=== PATIENT | female | born 1955 | race Caucasian/White ===

== ENCOUNTER → 2016-09-17 | Outpatient (REF) | payer BC ==
[~2016-09-17] MED LIST: ACET-654 PO; ACIDTAB16 PO; ALEV220C2 PO; ALPR0.25 PO; BISO10TA PO; CALC500T36 PO; CELE100C PO; CLAR10CA3 PO; CLIN900I5 IV; COLE1TAB PO; DRIS50002 PO; HUMA100I3 SC; HYDR62TA PO; K-TA10TA2 PO; LASI80TA PO; LIDO5OI TOP; MORP1INJ IV; NYST50SS SS; OMEP40CA2 PO; ORPHENADRINE PO; PROT1TAB2 PO; RANI15TA PO; TRAD5TAB PO; ZETI10TA2 PO; ZIAC10TA PO
== END | disposition home or self-care (01) ==
LOC: M LABDRAW1 15:34
PROVIDERS: ATTEND Nurse Practitioner Family
DX: E83.51 Hypocalcemia (principal)

== ENCOUNTER → 2016-12-29 | Outpatient (REF) | payer BC ==
[~2016-12-29] MED LIST changes: +HYDR25TA6 PO; -HYDR62TA PO
[2016-12-29 12:02] LABS: MEAN CORPUSCULAR HEMOGLOBIN 27.8 pg (27.0-33.0); MEAN CORPUSCULAR HGB CONC 32.4 g/dl (32.0-36.5); MEAN CORPUSCULAR VOLUME 85.8 fl (80.0-96.0); RED CELL DISTRIBUTION WIDTH 15.1 % (11.5-14.5); WHITE BLOOD COUNT 7.9 K/mm3 (4.0-10.0)
[2016-12-29 12:51] LABS: ALBUMIN 3.4 GM/DL (3.2-5.2); ALBUMIN/GLOBULIN RATIO 1.06 (1.00-1.93); BILIRUBIN,TOTAL 0.5 MG/DL (0.2-1.0); CREATININE FOR GFR 1.3 MG/DL (0.55-1.02); FREE T4 1.43 NG/DL (0.76-1.46); POTASSIUM SERUM 3.6 MEQ/L (3.5-5.1); TOTAL PROTEIN 6.6 GM/DL (6.4-8.2)
== END ==
LOC: M LABDRAW1 10:22
PROVIDERS: ATTEND Nurse Practitioner Family
DX: E11.9 Type 2 diabetes mellitus without complications (principal); E55.9 Vitamin D deficiency, unspecified; E78.00 Pure hypercholesterolemia, unspecified; E04.9 Nontoxic goiter, unspecified

== ENCOUNTER 2017-04-03 06:34 | Day surgery (SDC) | payer BC ==
[~2017-04-03] VITALS: Ht 165.1 cm; Wt 138.3 kg
[~2017-04-03 06:34] MED LIST changes: -ACET-654 PO; +ACET1TAB17 PO; -ACIDTAB16 PO; +ACIDTAB7 PO; +ALBU17IN INH; +BISO10TA3 PO; +FENO145T PO; +LEVO175T2 PO; -ZETI10TA2 PO; +ZETI10TA30 PO; +ZYRT10TA2 PO
[2017-04-03] MEDS ORDERED: LR 1,000 ML IV SCH (06:45)
[2017-04-03] MEDS ORDERED: METOPROLOL 5 MG/5 ML VIAL As Ordered ONE (07:49)
[2017-04-03] MEDS ORDERED: PROPOFOL 200 MG/20 ML VIAL As Ordered ONE (07:49)
[2017-04-03] MEDS ORDERED: LIDOCAINE 2% INJ 100 MG/5 ML SDV (FOR ANES.) As Ordered ONE (07:49)
--- NOTE | 2017-04-03 07:55 | ROOR ---
Patient Name: Gayla Gregory Procedure Date: 04/03/2017 7:33 AM Date of : 1955 Age: 61 [facility] Gender: Female Note Status: Finalized Procedure: Upper GI endoscopy Indications: Dysphagia Providers: Paolo ALONSO MD Referring MD: [facility] Requesting Provider: Medicines: Monitored Anesthesia Care Complications: No immediate complications. Procedure: Pre-Anesthesia Assessment: - The heart rate, respiratory rate, oxygen saturations, blood pressure, adequacy of pulmonary ventilation, and response to care were monitored throughout the procedure. The Endoscope was introduced through the mouth, and advanced to the second part of duodenum. The upper GI endoscopy was accomplished without difficulty. The patient tolerated the procedure well. Findings: The esophagus was normal. The stomach was normal. The examined duodenum was normal. No endoscopic abnormality was evident in the esophagus to explain the patient's complaint of dysphagia. It was decided, however, to proceed with dilation of the entire esophagus. The scope was withdrawn. Dilation was performed with a Perla dilator with no resistance at 54 Fr. The dilation site was examined and showed no change. The scope was withdrawn. Dilation was performed with a Perla dilator with no resistance at 56 Fr. The dilation site was examined and showed no change. Impression: - Normal esophagus. - Normal stomach. - Normal examined duodenum. - No endoscopic esophageal abnormality to explain patient's dysphagia. Esophagus dilated. Dilated with 54 and 56 Perla dilators. - No specimens collected. Recommendation: - Observe patient's clinical course. - I anticipate no further need for intervention. - Continue present medications. - Return to referring physician as previously scheduled. Paolo Alonso MD Paolo ALONSO MD 04/03/2017 7:54:47 AM This report has been signed electronically. Number of Addenda: 0 Note Initiated On: 04/03/2017 7:33 AM Estimated Blood Loss: Estimated blood loss: none.
[2017-04-03 08:45] VITALS: BP 125/82
== END 2017-04-03 08:45 | disposition home or self-care (01) ==
LOC: M SDC 06:34 → EDSTATUS 07:30 → M SDC 08:45
PROVIDERS: ATTEND Internal Medicine Gastroenterology
DX: R13.10 Dysphagia, unspecified (principal); I49.9 Cardiac arrhythmia, unspecified; I10 Essential (primary) hypertension; E78.00 Pure hypercholesterolemia, unspecified; R60.0 Localized edema; E11.9 Type 2 diabetes mellitus without complications; E04.1 Nontoxic single thyroid nodule; K57.32 Diverticulitis of large intestine without perforation or abscess without bleeding; K76.0 Fatty (change of) liver, not elsewhere classified; K21.9 Gastro-esophageal reflux disease without esophagitis; K58.9 Irritable bowel syndrome, unspecified; R06.02 Shortness of breath; M12.9 Arthropathy, unspecified; M54.2 Cervicalgia; M79.7 Fibromyalgia; R29.898 Other symptoms and signs involving the musculoskeletal system; R51 Headache; J45.909 Unspecified asthma, uncomplicated; N28.9 Disorder of kidney and ureter, unspecified; Z88.1 Allergy status to other antibiotic agents; Z91.09 Other allergy status, other than to drugs and biological substances; Z91.040 Latex allergy status; Z79.899 Other long term (current) drug therapy; Z90.710 Acquired absence of both cervix and uterus

== ENCOUNTER → 2017-04-15 | Outpatient (REF) | payer BC ==
[2017-04-15 14:59] LABS: FREE T4 1.4 NG/DL (0.76-1.46)
== END ==
LOC: M LABDRAW1 11:50
PROVIDERS: ATTEND Registered Nurse
DX: E89.0 Postprocedural hypothyroidism (principal)

== ENCOUNTER → 2017-04-15 | Outpatient (REF) | payer BC ==
[2017-04-15 14:32] LABS: MEAN CORPUSCULAR HEMOGLOBIN 28.2 pg (27.0-33.0); MEAN CORPUSCULAR HGB CONC 32.8 g/dl (32.0-36.5); MEAN CORPUSCULAR VOLUME 86.1 fl (80.0-96.0); RED CELL DISTRIBUTION WIDTH 14.4 % (11.5-14.5); WHITE BLOOD COUNT 6.9 K/mm3 (4.0-10.0)
[2017-04-15 15:01] LABS: ALBUMIN 3.5 GM/DL (3.2-5.2); ALBUMIN/GLOBULIN RATIO 1.06 (1.00-1.93); BILIRUBIN,TOTAL 0.5 MG/DL (0.2-1.0); CALCIUM LEVEL 8.7 MG/DL (8.8-10.2); CREATININE FOR GFR 1.22 MG/DL (0.55-1.02); FREE T4 1.44 NG/DL (0.76-1.46); GLOMERULAR FILTRATION RATE 47.4 (>45); POTASSIUM SERUM 4.2 MEQ/L (3.5-5.1); TOTAL PROTEIN 6.8 GM/DL (6.4-8.2)
== END ==
LOC: M LABDRAW1 11:50
PROVIDERS: ATTEND Internal Medicine Cardiovascular Disease
DX: E11.9 Type 2 diabetes mellitus without complications (principal); I10 Essential (primary) hypertension; E78.00 Pure hypercholesterolemia, unspecified; E03.9 Hypothyroidism, unspecified

== ENCOUNTER → 2017-09-29 | Outpatient (REF) | payer BC ==
[2017-09-29 11:46] LABS: HEMATOCRIT 45.9 % (36.0-47.0); HEMOGLOBIN 14.4 g/dl (12.0-16.0); MEAN CORPUSCULAR HEMOGLOBIN 26.7 pg (27.0-33.0); MEAN CORPUSCULAR HGB CONC 31.4 g/dl (32.0-36.5); MEAN CORPUSCULAR VOLUME 85.2 fl (80.0-96.0); PLATELET COUNT, AUTOMATED 173 10^3/uL (150-450); RED BLOOD COUNT 5.39 10^6/uL (4.00-5.40); WHITE BLOOD COUNT 6.8 10^3/uL (4.0-10.0)
[2017-09-29 12:01] LABS: ESTIMATED AVERAGE GLUCOSE 131 MG/DL (60-110); HEMOGLOBIN A1c 6.2 %
[2017-09-29 12:20] LABS: ALBUMIN 3.6 GM/DL (3.2-5.2); ALBUMIN/GLOBULIN RATIO 1.16 (1.00-1.93); ALKALINE PHOSPHATASE 45 U/L (45-117); ALT/SGPT 27 U/L (12-78); ANION GAP 7 MEQ/L (8-16); AST/SGOT 23 U/L (7-37); BILIRUBIN,TOTAL 0.6 MG/DL (0.2-1.0); BLOOD UREA NITROGEN 18 MG/DL (7-18); CALCIUM LEVEL 8.8 MG/DL (8.8-10.2); CARBON DIOXIDE LEVEL 30 MEQ/L (21-32); CHLORIDE LEVEL 108 MEQ/L (98-107); CHOLESTEROL LEVEL 144 MG/DL (<200); CPK CREATINE PHOSPHOKINASE 108 U/L (26-192); CREATININE FOR GFR 1.02 MG/DL (0.55-1.30); FREE T4 1.79 NG/DL (0.76-1.46); GLOMERULAR FILTRATION RATE 58.1 (>45); GLUCOSE, FASTING 91 MG/DL (70-100); HDL CHOLESTEROL 50 MG/DL (>40); NON-HDL-C 94 MG/DL; POTASSIUM SERUM 4.2 MEQ/L (3.5-5.1); SODIUM LEVEL 145 MEQ/L (136-145); TOTAL PROTEIN 6.7 GM/DL (6.4-8.2); TRIGLYCERIDES LEVEL 95 MG/DL (<150)
== END ==
LOC: M LABDRAW1 10:29
DX: E78.5 Hyperlipidemia, unspecified (principal); I10 Essential (primary) hypertension; E11.9 Type 2 diabetes mellitus without complications; E03.9 Hypothyroidism, unspecified
CPT/HCPCS: 82550

== ENCOUNTER 2018-01-16 13:03 | Emergency (ER) | payer BC ==
[2018-01-16 15:01] LABS: BASO % 0.3 % (0.0-1.0); EOS # 0.1 10^3/uL (0.0-0.50); EOS % 0.8 % (0.0-3.0); HEMATOCRIT 46.9 % (36.0-47.0); IMMATURE GRANULOCYTE % 0.3 % (0-3.0); LYMPH # 2.1 10^3/uL (1.5-4.5); LYMPH % 23.6 % (24.0-44.0); MEAN CORPUSCULAR HEMOGLOBIN 26.7 pg (27.0-33.0); MEAN CORPUSCULAR VOLUME 83.6 fl (80.0-96.0); MONO # 0.8 10^3/uL (0.0-0.8); MONO % 9.4 % (0.0-5.0); NEUTROPHILS # 5.8 10^3/uL (1.8-7.7); NEUTROPHILS % 65.6 % (36.0-66.0); PLATELET COUNT, AUTOMATED 148 10^3/uL (150-450); RED BLOOD COUNT 5.61 10^6/uL (4.00-5.40); RED CELL DISTRIBUTION WIDTH 15.5 % (11.5-14.5); WHITE BLOOD COUNT 8.8 10^3/uL (4.0-10.0)
[2018-01-16] MEDS: NS 1,000 ML IV (15:14)
[2018-01-16] MEDS: MORPHINE 4 MG/ML 1ML VIAL/SYRINGE (J2270) IV (15:15)
[2018-01-16] MEDS: ONDANSETRON 4MG/2ML VIAL (J2405) IV (15:16)
[2018-01-16 15:28] LABS: ANION GAP 4 MEQ/L (8-16); BLOOD UREA NITROGEN 12 MG/DL (7-18); CARBON DIOXIDE LEVEL 32 MEQ/L (21-32); CHLORIDE LEVEL 101 MEQ/L (98-107); CREATININE FOR GFR 0.97 MG/DL (0.55-1.30); GLOMERULAR FILTRATION RATE > 60.0 (>45); GLUCOSE, FASTING 114 MG/DL (70-100); POTASSIUM SERUM 3.9 MEQ/L (3.5-5.1); SODIUM LEVEL 137 MEQ/L (136-145)
== END 2018-01-16 16:53 | disposition home or self-care (01) ==
LOC: M ED 13:03
DX: R20.2 Paresthesia of skin (principal); M54.6 Pain in thoracic spine; M79.641 Pain in right hand; M79.642 Pain in left hand; I10 Essential (primary) hypertension; R11.2 Nausea with vomiting, unspecified; E86.0 Dehydration; L03.115 Cellulitis of right lower limb; Z20.9 Contact with and (suspected) exposure to unspecified communicable disease; R51 Headache; M54.9 Dorsalgia, unspecified; J45.909 Unspecified asthma, uncomplicated; E11.9 Type 2 diabetes mellitus without complications; E78.5 Hyperlipidemia, unspecified; K21.9 Gastro-esophageal reflux disease without esophagitis; K58.9 Irritable bowel syndrome, unspecified; K76.0 Fatty (change of) liver, not elsewhere classified; M50.93 Cervical disc disorder, unspecified, cervicothoracic region; Z79.899 Other long term (current) drug therapy; Z88.0 Allergy status to penicillin; Z91.040 Latex allergy status
CPT/HCPCS: J2270

== ENCOUNTER → 2018-02-06 | Outpatient (CLI) | payer BC ==
[2018-02-06 17:20] LABS: HEMATOCRIT 46.4 % (36.0-47.0); HEMOGLOBIN 14.5 g/dl (12.0-15.5); MEAN CORPUSCULAR HEMOGLOBIN 26.9 pg (27.0-33.0); MEAN CORPUSCULAR HGB CONC 31.3 g/dl (32.0-36.5); MEAN CORPUSCULAR VOLUME 86.1 fl (80.0-96.0); PLATELET COUNT, AUTOMATED 207 10^3/uL (150-450); RED BLOOD COUNT 5.39 10^6/uL (4.00-5.40); RED CELL DISTRIBUTION WIDTH 15.9 % (11.5-14.5); WHITE BLOOD COUNT 7.7 10^3/uL (4.0-10.0)
[2018-02-06 17:26] LABS: ESTIMATED AVERAGE GLUCOSE 131 MG/DL (60-110); HEMOGLOBIN A1c 6.2 %
[2018-02-06 17:34] LABS: ALBUMIN 3.7 GM/DL (3.2-5.2); ALBUMIN/GLOBULIN RATIO 1.09 (1.00-1.93); ALKALINE PHOSPHATASE 53 U/L (45-117); ALT/SGPT 25 U/L (12-78); ANION GAP 6 MEQ/L (8-16); AST/SGOT 16 U/L (7-37); BILIRUBIN,TOTAL 0.6 MG/DL (0.2-1.0); BLOOD UREA NITROGEN 18 MG/DL (7-18); CALCIUM LEVEL 8.7 MG/DL (8.8-10.2); CARBON DIOXIDE LEVEL 32 MEQ/L (21-32); CHLORIDE LEVEL 107 MEQ/L (98-107); CHOLESTEROL LEVEL 169 MG/DL (<200); CHOLESTEROL RISK RATIO 3.188 (<5); CPK CREATINE PHOSPHOKINASE 76 U/L (26-192); CREATININE FOR GFR 1.15 MG/DL (0.55-1.30); GLOMERULAR FILTRATION RATE 50.6 (>45); GLUCOSE, FASTING 98 MG/DL (70-100); HDL CHOLESTEROL 53 MG/DL (>40); LDL CHOLESTEROL 95.4 MG/DL (<100); NON-HDL-C 116 MG/DL; POTASSIUM SERUM 4.7 MEQ/L (3.5-5.1); SODIUM LEVEL 145 MEQ/L (136-145); TOTAL PROTEIN 7.1 GM/DL (6.4-8.2); TRIGLYCERIDES LEVEL 103 MG/DL (<150)
[2018-02-06 18:13] LABS: MALB URINE SIEMENS 9.7 MG/L; MAU/CREAT RATIO 6.9 MCG/MG (0.0-30.0)
== END ==
LOC: M WUC 11:57
DX: I10 Essential (primary) hypertension (principal); E78.5 Hyperlipidemia, unspecified; E11.9 Type 2 diabetes mellitus without complications; E03.9 Hypothyroidism, unspecified

== ENCOUNTER → 2018-05-13 | Outpatient (REF) | payer BC ==
[2018-05-13 13:12] LABS: HEMATOCRIT 46.2 % (36.0-47.0); HEMOGLOBIN 14.4 g/dl (12.0-15.5); MEAN CORPUSCULAR HEMOGLOBIN 26.9 pg (27.0-33.0); MEAN CORPUSCULAR HGB CONC 31.2 g/dl (32.0-36.5); MEAN CORPUSCULAR VOLUME 86.4 fl (80.0-96.0); PLATELET COUNT, AUTOMATED 195 10^3/uL (150-450); RED BLOOD COUNT 5.35 10^6/uL (4.00-5.40); RED CELL DISTRIBUTION WIDTH 15.1 % (11.5-14.5); WHITE BLOOD COUNT 7.9 10^3/uL (4.0-10.0)
[2018-05-13 14:06] LABS: ESTIMATED AVERAGE GLUCOSE 128 MG/DL (60-110); HEMOGLOBIN A1c 6.1 %
[2018-05-13 14:15] LABS: ALBUMIN 3.1 GM/DL (3.2-5.2); ALBUMIN/GLOBULIN RATIO 0.84 (1.00-1.93); ALKALINE PHOSPHATASE 52 U/L (45-117); ALT/SGPT 25 U/L (12-78); ANION GAP 8 MEQ/L (8-16); AST/SGOT 23 U/L (7-37); BILIRUBIN,TOTAL 0.5 MG/DL (0.2-1.0); BLOOD UREA NITROGEN 14 MG/DL (7-18); CALCIUM LEVEL 8.2 MG/DL (8.8-10.2); CARBON DIOXIDE LEVEL 30 MEQ/L (21-32); CHLORIDE LEVEL 107 MEQ/L (98-107); CHOLESTEROL LEVEL 149 MG/DL (<200); CHOLESTEROL RISK RATIO 3.239 (<5); CPK CREATINE PHOSPHOKINASE 84 U/L (26-192); CREATININE FOR GFR 1.07 MG/DL (0.55-1.30); FREE T4 1.55 NG/DL (0.76-1.46); GLUCOSE, FASTING 94 MG/DL (70-100); HDL CHOLESTEROL 46 MG/DL (>40); LDL CHOLESTEROL 83 MG/DL (<100); NON-HDL-C 103 MG/DL; POTASSIUM SERUM 4.5 MEQ/L (3.5-5.1); SODIUM LEVEL 145 MEQ/L (136-145); THYROID STIMULATING HORMONE 0.317 uIU/ML (0.358-3.740); TOTAL 25(OH) VITAMIN D 16.6 NG/ML (30.0-100.0); TOTAL PROTEIN 6.8 GM/DL (6.4-8.2); TRIGLYCERIDES LEVEL 98 MG/DL (<150)
[2018-05-13 14:26] LABS: MALB URINE SIEMENS 26.5 MG/L
== END ==
LOC: M LABDRAW1 12:10
DX: E78.5 Hyperlipidemia, unspecified (principal); I10 Essential (primary) hypertension; E55.9 Vitamin D deficiency, unspecified
CPT/HCPCS: 82550

== ENCOUNTER 2018-06-25 11:48 | Day surgery (SDC) | payer BC ==
[2018-06-25] MEDS: NS 1,000 ML IV (12:29)
[2018-06-25] MEDS ORDERED: PROPOFOL 200 MG/20 ML VIAL As Ordered ×2 (13:01→13:54)
[2018-06-25] MEDS ORDERED: LIDOCAINE 2% INJ 100 MG/5 ML SDV (FOR ANES.) As Ordered (13:01)
== END 2018-06-25 14:25 | disposition home or self-care (01) ==
LOC: M OPP 11:48
DX: R13.12 Dysphagia, oropharyngeal phase (principal); R12 Heartburn; I10 Essential (primary) hypertension; E78.5 Hyperlipidemia, unspecified; E11.9 Type 2 diabetes mellitus without complications; E03.9 Hypothyroidism, unspecified; G47.00 Insomnia, unspecified; Z79.899 Other long term (current) drug therapy
CPT/HCPCS: 43245

== ENCOUNTER → 2019-05-23 | Outpatient (CLI) | payer MEDICARE ==
[~2019-05-23] MED LIST changes: -ACET1TAB17 PO; +ACET1TAB55 PO; -BISO10TA PO; +BISO10TA13 PO; -BISO10TA3 PO; +BISO10TA4 PO; -CALC500T36 PO; +CALC500T61 PO; -CLIN900I5 IV; +CLIN900I7 IV; -DRIS50002 PO; +DRIS50003 PO; -FENO145T PO; +FENO145T13 PO; +FURO40TA2 PO; +GABA-843 PO; +GLIM1TAB PO; -LASI80TA PO; +LASI80TA3 PO; +LEVOTAB10 PO; -LIDO5OI TOP; +LIDO5OIN TOP; +ORPH100T2 PO; +ROBA500T PO; +ZETI10TA16 PO; -ZETI10TA30 PO; +ZOFR4TAB14 PO; +ZYRT10CA5 PO; -ZYRT10TA2 PO
--- NOTE | 2019-05-24 07:40 | ECHO ---
DATE OF PROCEDURE: 05/23/2019 REFERRING PHYSICIAN: Dr. Maldonado INDICATION: Dyspnea HEIGHT: 167 cm. WEIGHT: 168 kg. DIMENSIONS: IVS: 1.0 LV: 5.5 LVPW: 1.2 LA: 4.8 Aorta: 2.7 Left atrial volume index: 17 Mitral E wave velocity: 114 A wave: 70 FINDINGS: The study is of rather poor technical quality corresponding to patient's body habitus. Left ventricle is of normal size and probably normal systolic function. I do not appreciate any segmental wall motion abnormalities based on somewhat limited views. Right ventricle was poorly seen, but does not appear grossly enlarged. Left atrium is moderately enlarged. Right atrium was poorly visualized. Aortic and mitral valve appear grossly normal. Tricuspid valve also appears normal based on very limited view. Pulmonic valve was not visualized. Pericardial fat pad, but no effusion is noted. Inferior vena cava was not seen. Aortic root is normal. Aortic arch and abdominal aorta were not seen. Doppler interrogation reveals no significant aortic valvular disease. There is trace mitral insufficiency and trace tricuspid insufficiency. Unfortunately, quality of TR jet was not sufficient to adequately estimate pulmonary artery pressure. Mitral inflow pattern reveals normal pattern. Tissue Doppler imaging of mitral annulus was not performed. Consequently, I cannot reliably estimate diastolic function. CONCLUSIONS: 1. Study is of markedly limited technical quality. 2. Normal LV size with probably normal systolic function. Unable to estimate diastolic function. 3. No significant aortic, mitral and tricuspid valvular disease. 4. Unable to estimate central venous pressure and pulmonary artery pressure. COMMENT: Subacute bacterial endocarditis (SBE) prophylaxis is not recommended.
== END ==
LOC: M CARPUL 07:48
PROVIDERS: ATTEND Internal Medicine Pulmonary Disease
DX: R06.00 Dyspnea, unspecified (principal)

== ENCOUNTER → 2019-07-07 | Outpatient (CLI) | payer MEDICARE ==
[~2019-07-07] MED LIST changes: -GLIM1TAB PO; +GLIM1TAB2 PO; -OMEP40CA2 PO; +OMEP40CA97 PO
--- NOTE | 2019-07-12 19:22 | SLEEPCENT ---
DATE OF PROCEDURE: 07/07/2019 REFERRING PROVIDER: FRANCIS Felix INTERPRETATION Nocturnal polysomnography was performed for evaluation of sleep apnea syndrome symptoms consisting of excessive daytime sleepiness, insomnia, snoring, gasping respirations, morning headaches, and nonrestorative sleep. It should be noted that the patient slept in a hospital bed with the head of bed elevated to 45 degrees. She has slept in a recliner since her hospital discharge in February of 2009. There was a total of 7 hours and 29 minutes of data reviewed with 366 minutes of sleep identified. Sleep latency was 16.5 minutes. REM latency was 93.5 minutes. No slow-wave sleep was identified. Sleep latency was 83.2%. EKG showed normal sinus rhythm with an average heart rate of 60 beats per minute. Speeding and slowing was noted surrounding some respiratory events. No epileptiform discharge observed. There were 219 respiratory events identified of 10 seconds in duration or longer for an apnea-hypopnea index (AHI) of 35.7. The events were predominantly obstructive apnea/hypopneas. Respiratory event related arousal (RERA) index was 0.3 giving an respiratory disturbance index (RDI) of 46.2. Mean oxygen saturation for the study was 89% with a minimum recorded value of 63%. Arousal index was 6.6 with a majority of arousals breathing related. Periodic limb movement index was 9.7. She spent a vast majority of the study with saturations 89% or higher. IMPRESSION: 1. Obstructive sleep apnea, severe. 2. Periodic limb movements, mild. RECOMMENDATIONS Recommend the patient return to the sleep disorder center for the determination of pressure therapy. Pending that intervention, alcohol and sedative usage should be avoided and care should be taken when operating motor vehicles.
== END ==
LOC: M SLEEP 19:42
PROVIDERS: ATTEND Internal Medicine Pulmonary Disease
DX: G47.33 Obstructive sleep apnea (adult) (pediatric) (principal); G47.61 Periodic limb movement disorder

== ENCOUNTER → 2019-09-08 | Outpatient (CLI) | payer MEDICARE, BC ==
[~2019-09-08] MED LIST changes: -FENO145T13 PO; +FENO145T7 PO; -GLIM1TAB2 PO; +GLIM1TAB4 PO
== END ==
LOC: M SLEEP 19:12
PROVIDERS: ATTEND Internal Medicine Pulmonary Disease
DX: G47.33 Obstructive sleep apnea (adult) (pediatric) (principal)

== ENCOUNTER → 2019-09-09 | Outpatient (CLI) | payer MEDICARE ==
--- NOTE | 2019-09-23 01:55 | ECWPNPC ---
PATIENT NAME: TRACY EARL : 1955 GENDER: FEMALE VISIT DATE: 09/09/2019 DISCHARGE DATE: 09/09/19 1510 VISIT LOCKED DATE TIME: PHYSICIAN: YANI MARTINEZ MD RESOURCE: YANI MARTINEZ MD REASON FOR APPOINTMENT 1. BACK PAIN HISTORY OF PRESENT ILLNESS PAIN SCREENING: PATIENT HAS A COMPLAINT OF ACUTE OR CHRONIC PAIN :YES 64 YEAR OLD FEMALE PATIENT WITH A HISTORY OF CHRONIC LOW BACK AND BILATERAL KNEE PAIN. THE PATIENT DESCRIBES HER PAIN BURNING, STABBING, AND SHOOTING WITH A PAIN SCORE OF 8-9/10 DEPENDING ON PHYSICAL ACTIVITY. THE PATIENT SAYS SHE HAS BEEN SUFFERING FROM HER PAIN FOR MANY YEARS. THE PATIENT SAYS HER KNEE PAIN IS WORSE ON THE LEFT SIDE AND DESCRIBES IT A BURNING SENSATION FROM HER KNEE DOWN TO HER ANKLE. THE PATIENT SAYS SHE IS USING A WHEELCHAIR DUE TO HER PAIN. THE PATIENT SAYS HER PAIN IS AFFECTING HER ABILITY TO PERFORM HER DAILY ACTIVITIES SUCH MOVING AROUND, CLEANING HER HOUSE, AND GROCERY SHOPPING. PATIENT DENIES UNEXPLAINABLE WEIGHT LOSS, FEVER, CHILLS, NEW CHANGES ON HER URINARY OR BOWEL CONTROL. FALL RISK SCREENING: SCREENING :NO FALLS REPORTED IN THE LAST YEAR CURRENT MEDICATIONS TAKING OMEPRAZOLE 40 MG CAPSULE DELAYED RELEASE 1 CAPSULE ORALLY BID TAKING POTASSIUM CHLORIDE TABLET BID 10 MEQ TAKING FUROSEMIDE 80 MG TABLET 1 TABLET ORALLY ONCE A DAY NEEDED TAKING VITAMIN D 70282 UNIT CAPSULE 1 CAPSULE ORALLY TAKING BISOPROLOL-HYDROCHLOROTHIAZIDE 10-6.25 MG TABLET 1 TABLET ORALLY ONCE A DAY TAKING TRADJENTA 5 MG TABLET 1 TABLET ORALLY ONCE A DAY TAKING FENOFIBRATE 145 MG TABLET 1 TABLET ORALLY ONCE A DAY TAKING EZETIMIBE 10 MG TABLET 1 TABLET ORALLY ONCE A DAY TAKING SYNTHROID 175 MCG TABLET 1 TABLET ON AN EMPTY STOMACH IN THE MORNING ORALLY ONCE A DAY TAKING GLIMEPIRIDE 1 MG TABLET 1 TABLET WITH BREAKFAST OR THE FIRST MAIN MEAL OF THE DAY ORALLY ONCE A DAY TAKING GABAPENTIN 300 MG CAPSULE 1 CAPSULE ORALLY 900 MG TID, NOTES: 900 MG TID TAKING LEVOCETIRIZINE DIHYDROCHLORIDE 5 MG TABLET 1 TABLET IN THE EVENING ORALLY ONCE A DAY TAKING CELEBREX 100 MG CAPSULE 1 CAPSULE WITH FOOD ORALLY BID TAKING VITAMIN B12 1000 MCG TABLET EXTENDED RELEASE 1 TABLET ORALLY ONCE A DAY TAKING LORATADINE 10 MG TABLET 1 TABLET ORALLY ONCE A DAY TAKING FAMOTIDINE 20 MG TABLET 1 CAP ORALLY BID NOT-TAKING CLARITIN-D 24 HOUR 10-240 MG TABLET EXTENDED RELEASE 24 HOUR 1 TABLET NEEDED ORALLY ONCE A DAY NOT-TAKING ZETIA 10 MG TABLET 1 TABLET ORALLY ONCE A DAY NOT-TAKING ORPHENADRINE CITRATE 100 MG TABLET 1 TABLET AT BEDTIME ORALLY ONCE A DAY NOT-TAKING ZANTAC 150 MAXIMUM STRENGTH 150 MG TABLET 1 TABLET AT BEDTIME ORALLY ONCE A DAY NOT-TAKING AMOXICILLIN 500 MG TABLET 1 TABLET ORALLY EVERY 12 HRS NOT-TAKING MEDROL 4 MG TABLET THERAPY PACK DIRECTED ORALLY DAILY NOT-TAKING COLESTIPOL HCL 1 GM TABLET 2 TABLETS ORALLY ONCE A DAY NOT-TAKING FUROSEMIDE 1 TAB ORAL NOT-TAKING LISINOPRIL 10 MG TABLET 1 TABLET ORALLY ONCE A DAY NOT-TAKING CALCIUM 150 MG TABLET ORALLY NOT-TAKING ACETAMINOPHEN 500 MG CAPSULE ORALLY PAST MEDICAL HISTORY HYPERTENSION DIABETES HIGH CHOLESTEROL ARTHRITIS ALLERGIES AUGMENTIN: STOMACH CRAMPS - SIDE EFFECTS VICODIN: URNING SENSATION ACROSS CHEST - SIDE EFFECTS LATEX GLOVES: LIPS TURNED BLUE AT DENTIST APPT - SIDE EFFECTS STEROIDS- PT UNAWARE WHICH STEROID: FACIAL REDNESS AND STATES SHE GIT REALLY HOT - SIDE EFFECTS SURGICAL HISTORY NECK SURGERY- "SCRAPED DISCS" 05/29/12 BILATERAL BREAST REDUCTION 05/03/2008 HYSTERECTOMY 10/30/2007 PINICULECTOMY 08/11/2007 REMOVAL OF NAVEL 01/2008 REMOVAL OF FATTY TUMOR FRO LEFT HIP 05/2005 GALL BLADDER REMOVAL 08/2005 OVARY REMOVAL 03/2000 THROGLYOSCYAL CYST REMOVAL 1960 TONSILLECTOMY 1957 BILATERAL CATARACT REMOVAL WITH LENS IMPLANT 12/2014 THYROIDECTOMY 01/2017 FAMILY HISTORY FATHER: 82 YRS MOTHER: 81 YRS SIBLINGS: 42 YRS, DIAGNOSED WITH DIABETES 2DAUGHTER(S) - HEALTHY. FATHER-ALSMOTHER- ARTERIAL SCLEROSISSIBLING/ALIVE- DIABETES, COPD SIBLING/ALIVE- DIABETES/ BACK ISSUES1 DAUGHTER HAS PARACARDITIS. SOCIAL HISTORY GENERAL: TOBACCO USE ARE YOU A:NONSMOKER HIV / HEP-C SCREENING HIV TEST OFFERED TO PATIENT:YES DATE OFFERED:12/13/2016 TEST ACCEPTED:NO HEP-C TEST OFFERED TO PATIENT:NO REASON:PATIENT DECLINED OTHERS AT HOME: SPOUSE. HOUSING: OWNS MOBILE HOME. EDUCATION LEVEL OF EDUCATION:HIGH SCHOOL BOCES- OFFICE MANAGEMENT DIET: REGULAR. LANGUAGE LANGUAGES SPOKEN:AMHARIC DOMESTIC VIOLENCE STATUS: NEW PATIENT PAIN DIARY PATIENT DESCRIBES PAIN :BURNING, STABBING, SHOOTING FROM 0-10, WHAT LEVEL IS YOUR PAIN TODAY?8 PRECIPITATING FACTORS SITTING FOR TOO LONG, STANDING ALLEVIATING FACTORS SITTING IN RECLINER, IMPACT ON FUNCTION NOT ABLE TO DO THE THINGS SHE WOULD LIKE TO DO DAILY HAVE YOU BEEN SICK IN THE LAST WEEK (COLD, COUGH, FEVER, FLU, ETC)NO DO YOU TAKE ANY BLOOD THINNERS?NO DO YOU HAVE ANY RASHES OR OPEN SORES?NO ANY CHANGE IN BOWEL OR BLADDER CONTROL?NO ARE YOU ALLERGIC TO SHELLFISH OR IV DYE?NO ARE YOU DIABETIC?YES DO YOU HAVE A PACEMAKER OR DEFIBRILLATOR?NO HAVE YOU FALLEN IN THE LAST 6 MONTHS?NO DO YOU USE ANY TYPE OF TOBACCO (SMOKE, SMOKELESS, CHEW, ETC.)NO ARE YOU ABUSED, NEGLECTED, OR IN AN UNSAFE ENVIRONMENT?NO DO YOU HAVE THOUGHTS OF HURTING YOURSELF OR SOMEONE ELSE?NO INTENSITY SCALE REVIEWEDNUMBER RECREATIONAL DRUG USE DRUG USE?NO PATIENT DENIES ABUSE OR MISSUSED OF ANY MEDICATION DENIES PATIENT DENIES USE OF ANY ILLEGAL SUBSTANCE INCLUDING MARIJUANA OR COCAINE DENIES EXERCISE: NO REGULAR EXERCISE- DUE TO PAIN. LEARNING BARRIERS / SPECIAL NEEDS BARRIERS TO LEARNING?NO HEARING IMPAIRED?NO VISION IMPAIRED?YES :CORRECTIVE LENSES COGNITIVELY IMPAIRED?NO READINESS TO LEARN?YES LEARNING PREFERENCES?NO LEARNING CAPABILITIES PRESENT?YES EMOTIONAL BARRIERS?NO SPECIAL DEVICES?NO BUTTON SPINDLER NEEDED?NO PAIN CLINIC PFS, CLERGY, PUBLIC HEALTH REFERRALS PFS REFERRAL NEEDED?NO CLERGY REFERRAL NEEDED?NO PUBLIC HEALTH REFERRAL NEEDED?NO WAS THE PROVIDER NOTIFIED OF ANY PERTINENT INFO?YES HAS THE PATIENT BEEN EDUCATED REGARDING HIS/HER PLAN OF CARE?YES HAS THE PATIENT BEEN EDUCATED REGARDING PAIN, THE RISK FOR PAIN, THE IMPORTANCE OF EFFECTIVE PAIN MANAGEMENT, AND THE PAIN ASSESSMENT PROCESS?YES LATEX QUESTIONNAIRE LATEX ALLERGY : HAVE YOU EVER DEVELOPED ANY TYPE OF REACTION AFTER HANDLING LATEX PRODUCTS SUCH RUBBER GLOVES, CONDOMS, DIAPHRAGMS, BALLOONS, SOCKS, OR UNDERWEAR?YES - PLEASE INDICATE :RUBBER GLOVES LATEX ALLERGY : HAVE YOU EVER DEVELOPED ANY TYPE OF REACTION DURING OR AFTER DENTAL APPOINTMENT, VAGINAL/RECTAL EXAMINATION, SURGICAL PROCEDURE, OR ANY OTHER EXPOSURE?YES - PLEASE INDICATE :DENTAL PROCEDURE LATEX RISK : HAVE YOU EVER HAD ANY DIFFICULTY BREATHING OR HIVES AFTER EATING OR HANDLING ANY FRUITS, OR VEGETABLES; SUCH KIWI, BANANAS, STONE FRUITS, OR CHESTNUTSNO LATEX RISK : DO YOU HAVE A PREVIOUS PERSONAL HISTORY OF MORE THAN NINE SURGERIES, SPINA BIFIDA, OR REPEATED CATHERIZATIONS? YES - PLEASE INDICATE : > 9 SURGERIES LATEX RISK : ARE YOU FREQUENTLY EXPOSED TO LATEX PRODUCTS IN YOUR OCCUPATION?NO DATE ASKED : 09/09/2019 CAFFEINE CAFFEINE USE?NO ADVANCE DIRECTIVE ADVANCE DIRECTIVE DISCUSSED WITH PATIENT:NO PATIENT STATES SHE DOES NOT HAVE ANY ADVANCED DIRECTIVES AT THIS TIME. PAPERWORK FOR HCP PROVEDED TO PT DECLINES ASSISTANCE COMPLETING PAPERWORK. 09/09/2019 1207 NLJ YARSANI YARSANI NO RESTORATIONISM BELIEFS THAT WOULD IMPACT HEALTH CARE. MARITAL STATUS: . ALCOHOL SCREENING DID YOU HAVE A DRINK CONTAINING ALCOHOL IN THE PAST YEAR?NO POINTS0 INTERPRETATIONNEGATIVE OCCUPATION: UNEMPLOYED. REVIEWED WITH PATIENT 09/09/2019 1207 NLJ. HOSPITALIZATION/MAJOR DIAGNOSTIC PROCEDURE SURGERIES COUGH 02/2019 HAD THROAT PROBLEMS, CLOSURE 12/2015 REVIEW OF SYSTEMS REVIEWED BY: PROVIDER: YANI MARTINEZ MD . CONSTITUTIONAL: ANY CHANGE IN YOUR MEDICAL CONDITION? NO . CHILLS NO . FEVER NO . INFECTION: DO YOU HAVE NEW INFECTIONS? NO . DO YOU HAVE HISTORY OF MRSA? NO . MUSCULOSKELETAL: ANY NEW PATTERNS OF PAIN OR NUMBNESS? NO . SYTEMIC LUPUS NO . GASTROENTEROLOGY: ANY NEW CHANGE IN BOWEL CONTROL? NO . BARRETTS ESOPHAGUS NO . CIRRHOSIS NO . HEPATITIS NO . LIVER FAILURE NO . ACID REFLUX YES . UNEXPLAINED WEIGHT LOSS NO . GENITOURINARY: ANY NEW CHANGE IN BLADDER CONTROL? NO . IS THERE A CHANCE YOU COULD BE ? NO . HEMATOLOGY/LYMPH: DO YOU TAKE ANY BLOOD THINNERS? (FOR EXAMPLE- COUMADIN, PLAVIX, AGGRENOX, PLATEL, PRADAXA, OR XARELTO) NO . WHEN WAS YOUR LAST DOSE? DATE: TIME: . LOW PLATELET COUNT NO . SICKLE CELL DISEASE NO . VON WILLIEBRANDS NO . FACTOR V LEIDEN NO . THALLASEMIA NO . ANEMIA NO . EASY BRUISING NO . NEUROLOGY: HAVE YOU FALLEN IN THE PAST 12 MONTHS? NO . ANY NEW EXTREMITY NUMBNESS OR WEAKNESS? NO . HEAD INJURY NO . DEMENTIA NO . CEREBRAL PALSY NO . MULTIPLE SCLEROSIS NO . DIZZINESS NO . HEADACHE NO . STROKES NO . VERTIGO NO . CARDIOLOGY: DO YOU HAVE A PACEMAKER OR DEFIBRILLATOR? NO . ANGINA NO . HEART ATTACK NO . HEART SURGERY NO . CONGESTIVE HEART FAILURE/FLUID OVERLOAD NO . CHEST PAIN NO . HIGH BLOOD PRESSURE ON MEDICATION(S) . IRREGULAR HEART BEAT NO . RESPIRATORY: HAVE YOU BEEN SICK IN THE PAST WEEK? NO . FEVER NO . FLU LIKE SYMPTOMS? NO . CPAP NO . BYPAP NO . ASTHMA NO . EMPHYSEMA NO . CHRONIC LUNG DISEASES NO . SHORTNESS OF BREATH ON EXERTION YES . COUGH NO . SNORING NO . INTEGUMENTARY: DO YOU HAVE ANY RASHES OR OPEN SORES? NO . ALLERGIC/IMMUNO: ARE YOU ALLERGIC TO IV DYE? NO . ANY NEW ALLERGIES? NO . PSYCHIATRIC: DO YOU HAVE THOUGHTS OF HURTING YOURSELF OR SOMEONE ELSE? NO . ARE YOU ABUSED, NEGLECTED, OR IN AN UNSAFE ENVIRONMENT? NO . ENDOCRINOLOGY: ARE YOU DIABETIC? YES . THYROID DISORDER NO- HISTORY OF THYROIDECTOMY . OTHER: DO YOU NEED ANY PRESCRIPTIONS? NO . IF YES, PLEASE LIST: ____ . ANY NEW PROBLEMS WITH YOUR MEDICATIONS? NO . WHEN DID YOU LAST EAT? ____ . WHEN DID YOU LAST DRINK? ____ . WHAT DID YOU LAST DRINK? ____ . NAME OF PERSON DRIVING YOU HOME? ____ . DO YOU HAVE ANY OTHER QUESTIONS OR CONCERNS NO . VITAL SIGNS WT 352 LBS, HT 65.5 IN, BMI 57.68 INDEX, BP 130/65 MM HG, HR 71 /MIN, RR 16 /MIN, TEMP 97.8 F, OXYGEN SAT % 96%, SAFE IN ENV? (Y/N) YES, REVIEWED BY: SORAYA. EXAMINATION GENERAL EXAMINATION: PATIENT IS ALERT O X 3 AND COOPERATIVE. LUNGS CLEAR, TO AUSCULTATION. HEART: NO MURMURS OR GALLOPS; FACIAL CRANIAL NERVES ARE GROSSLY NORMAL. GOOD SYMMETRY OF FACIAL MUSCLE MOVEMENT. NORMAL VISUAL BAZAN. ANTALGIC WALK. TENDERNESS OVER THE LEFT KNEE AND PARASPINAL MUSCLE GROUP OF THE LOW BACK. MRI OF THE LUMBAR SPINE DONE ON 05/09/2019 SHOWS FACET ARTHROPATHY CHANGES AT MULTIPLE LEVELS AND BULGING DISCS AT L2-L3 AND L4-L5 LEVELS. MRI OF THE RIGHT KNEE DONE ON 10/08/2015 SHOWS CHONDROMALACIA AND EDEMA. ASSESSMENTS SPONDYLOSIS WITHOUT MYELOPATHY OR RADICULOPATHY, LUMBAR REGION - M47.816 (PRIMARY) OSTEOARTHRITIS OF RIGHT KNEE, UNSPECIFIED OSTEOARTHRITIS TYPE - M17.11 OSTEOARTHRITIS OF LEFT KNEE, UNSPECIFIED OSTEOARTHRITIS TYPE - M17.12 TREATMENT SPONDYLOSIS WITHOUT MYELOPATHY OR RADICULOPATHY, LUMBAR REGION CLINICAL NOTES: WE DISCUSSED SEVERAL ISSUES WITH MS. EARL'S PAIN MANAGEMENT CASE. DUE TO THE LUMBAR SPONDYLOSIS AND ACUTE PAIN OVER THE LAST MONTH, I WOULD LIKE TO MOVE FORWARD WITH A L4-L5 AND L5-S1 LUMBAR THERAPEUTIC FACET BLOCK AT THIS TIME. WE DISCUSSED THE BENEFITS, RISKS, AND ALTERNATIVES OF THE INJECTION AND THE PATIENT WOULD LIKE TO PROCEED. THE PATIENT WILL FOLLOW UP IN SEVERAL WEEKS AFTER HER INJECTION TO SEE HOW IT IS HELPING WITH HER PAIN. I WILL ORDER FOR A RIGHT AND LEFT KNEE MRI TO BE DONE DUE TO BILATERAL KNEE PAIN AND OSTEOARTHRITIS. THE PATIENT WILL FOLLOW UP IN SEVERAL WEEKS AFTER HER LUMBAR FACET BLOCK TO SEE HOW IT IS HELPING WITH HER PAIN AND TO GO OVER HER KNEE MRI RESULTS. INSTRUCTIONS WERE GIVEN, QUESTIONS WERE ANSWERED, PATIENT REPORTS UNDERSTANDING AND AGREES WITH THE PLAN. I, MOSES WALKER, DOCUMENTED THE ABOVE INFORMATION ACTING A SCRIBE FOR DR. MARTINEZ. I HAVE REVIEWED THE ABOVE DOCUMENT, WRITTEN BY MOSES GODFREY AND I VERIFY THAT IT IS ACCURATE. DEAR KARTIK MARIE: THANK YOU FOR YOUR KIND REFERRAL OF TRACY EARL. IF YOU WANT TO DISCUSS HER CASE WITH ME PLEASE CALL ME AT THE PAIN CENTER AT [phone]. SINCERELY, YANI MARTINEZ MD PAIN MEDICINE . OSTEOARTHRITIS OF RIGHT KNEE, UNSPECIFIED OSTEOARTHRITIS TYPE START DIAZEPAM TABLET, 5 MG, 1 TABLET NEEDED, ORALLY IN WAY TO MRI UNIT AND AT MRI UNIT, THE DAY OF MRI ( MDD2), 2 DAYS, 4, REFILLS 0 [facility] MRI KNEE WITHOUT [id number] 09/15/2019 9:38:59 AM > BOTH KNEES* OSTEOARTHRITIS OF LEFT KNEE, UNSPECIFIED OSTEOARTHRITIS TYPE [facility] MRI KNEE WITHOUT [id number] 09/15/2019 9:38:59 AM > BOTH KNEES* OTHERS NOTES: FACET JOINT INJECTION MATERIAL WAS PRINTED. PROCEDURE CODES FA211 ESTABILISHED PATIENT [facility] FACILITY CHARGE G8427 CURRENT MEDS W/DOSAGES DOCUMENTED G8730 PAIN ASSESS POS TOOL F/U PLAN DOC DISPOSITION & COMMUNICATION ELECTRONICALLY SIGNED BY YANI MARTINEZ MD, MD ON 09/22/2019 AT 04:57 PM EST DISCLAIMER : THIS IS A VISIT SUMMARY EXTRACTED FROM THE [employer] CHART. IT IS NOT A COPY OF THE [employer] PROGRESS NOTE. MTDD
== END ==
LOC: M PAIN 11:30
PROVIDERS: ATTEND Anesthesiology
DX: M47.816 Spondylosis without myelopathy or radiculopathy, lumbar region (principal); M17.0 Bilateral primary osteoarthritis of knee; G89.29 Other chronic pain; I10 Essential (primary) hypertension; E11.9 Type 2 diabetes mellitus without complications; Z88.1 Allergy status to other antibiotic agents; Z88.5 Allergy status to narcotic agent; Z88.8 Allergy status to other drugs, medicaments and biological substances; Z91.040 Latex allergy status; K21.9 Gastro-esophageal reflux disease without esophagitis; E66.01 Morbid (severe) obesity due to excess calories; Z68.43 Body mass index [BMI] 50.0-59.9, adult; Z79.84 Long term (current) use of oral hypoglycemic drugs; Z79.899 Other long term (current) drug therapy

== ENCOUNTER → 2019-09-15 | Outpatient (REF) | payer MEDICARE | LOC: M LAB REF 18:22 | PROVIDERS: ATTEND Internal Medicine Gastroenterology | DX: R11.2 Nausea with vomiting, unspecified (principal) ==

== ENCOUNTER → 2019-09-15 | Outpatient (CLI) | payer MEDICARE ==
[2019-09-15 15:31] LABS: BASO # 0.1 10^3/uL (0.0-0.2); BASO % 0.6 % (0.0-1.0); EOS # 0.2 10^3/uL (0.0-0.5); EOS % 1.5 % (0.0-3.0); HEMATOCRIT 51.5 % (36.0-47.0); HEMOGLOBIN 15.5 g/dl (12.0-15.5); LYMPH # 2.5 10^3/uL (1.5-5.0); LYMPH % 23.2 % (24.0-44.0); MEAN CORPUSCULAR HEMOGLOBIN 26.2 pg (27.0-33.0); MEAN CORPUSCULAR HGB CONC 30.1 g/dl (32.0-36.5); MEAN CORPUSCULAR VOLUME 87.1 fl (80.0-96.0); MONO # 0.7 10^3/uL (0.0-0.8); MONO % 6.6 % (0.0-5.0); NEUTROPHILS # 7.2 10^3/uL (1.5-8.5); NEUTROPHILS % 67.6 % (36.0-66.0); PLATELET COUNT, AUTOMATED 181 10^3/uL (150-450); RED BLOOD COUNT 5.91 10^6/uL (4.00-5.40); WHITE BLOOD COUNT 10.6 10^3/uL (4.0-10.0)
[2019-09-15 16:13] LABS: ALBUMIN 3.7 GM/DL (3.2-5.2); BILIRUBIN,TOTAL 0.5 MG/DL (0.2-1.0); CALCIUM LEVEL 9.4 MG/DL (8.8-10.2); CREATININE FOR GFR 1.35 MG/DL (0.55-1.30); FREE T4 1.71 NG/DL (0.76-1.46); GLOMERULAR FILTRATION RATE 41.8 (>45); POTASSIUM SERUM 3.7 MEQ/L (3.5-5.1); THYROID STIMULATING HORMONE 0.769 uIU/ML (0.358-3.740); TOTAL PROTEIN 7.1 GM/DL (6.4-8.2)
== END ==
LOC: M LAB 14:11
PROVIDERS: ATTEND Internal Medicine Gastroenterology
DX: R11.2 Nausea with vomiting, unspecified (principal); Z79.899 Other long term (current) drug therapy

== ENCOUNTER → 2020-01-28 | Outpatient (CLI) | payer MEDICARE ==
[~2020-01-28] MED LIST changes: +ALBU1.25 INH; +LANS30CA PO; +VENTAER INH; +vitamin D PO
== END ==
LOC: M LABSMTC 08:52
PROVIDERS: ATTEND Anesthesiology
DX: Z03.818 Encounter for observation for suspected exposure to other biological agents ruled out (principal); Z11.59 Encounter for screening for other viral diseases
CPT/HCPCS: C9803; U0003

== ENCOUNTER 2020-01-31 12:01 | Day surgery (SDC) | payer MEDICARE ==
[~2020-01-31] VITALS: Ht 165.1 cm; Wt 142.4 kg
[~2020-01-31 12:01] MED LIST changes: +GABA-282 PO; -GABA-843 PO; +NS 1,000 ML IV ONE
[2020-01-31] MEDS ORDERED: propofoL 500 MG/50 ML VIAL As Ordered ONE (13:11)
[2020-01-31] MEDS ORDERED: LIDOCAINE 2% 100MG/5ML SDV (FOR ANES.) As Ordered ONE ×2 (13:11→13:21)
[2020-01-31] MEDS ORDERED: ONDANSETRON 4MG/2ML VIAL As Ordered ONE (13:53)
[2020-01-31] MEDS ORDERED: METOCLOPRAMIDE INJ 10MG/2ML VIAL (J2765 PER 1) As Ordered ONE (13:53)
--- NOTE | 2020-01-31 14:16 | ROOR ---
Patient Name: Gayla Gregory Procedure Date: 01/31/2020 1:51 PM Date of : 1955 Age: 64 Room: [facility] Gender: Female Note Status: Finalized Procedure: Upper GI endoscopy Indications: Heartburn, Nausea with vomiting Providers: Paolo ALONSO MD Referring MD: VESNA ESCALERA NP Requesting Provider: Medicines: Monitored Anesthesia Care Complications: No immediate complications. Procedure: Pre-Anesthesia Assessment: - The heart rate, respiratory rate, oxygen saturations, blood pressure, adequacy of pulmonary ventilation, and response to care were monitored throughout the procedure. The Endoscope was introduced through the mouth, and advanced to the second part of duodenum. The upper GI endoscopy was accomplished without difficulty. The patient tolerated the procedure well. Findings: The Z-line was irregular and was found 37 cm from the incisors. This was biopsied with a cold forceps for histology. The exam of the esophagus was otherwise normal. Three 7 mm semi-sessile polyps were found in the gastric body and in the gastric antrum. This was biopsied with a cold forceps for histology. The exam of the stomach was otherwise normal. The examined duodenum was normal. Impression: - Z-line irregular, 37 cm from the incisors. Biopsied. - Three gastric polyps. Biopsied. - Otherwise normal exam to third portion of duodenum. Recommendation: - Follow an antireflux regimen. - Eat smaller, more frequent meals throughout the day. - Low fat diet. - Liquid/soft foods are tolerated better than solid foods. - Low fiber/well cooked vegetables are tolerated better than high fiber/fibrous foods/raw vegetables. - Avoid medications that inhibit gastric/intestinal motility such as narcotic medications. - Telephone endoscopist for pathology results in 2 weeks. Paolo Alonso MD Paolo ALONSO MD 01/31/2020 2:16:26 PM Electronically signed by Paolo ALONSO MD Number of Addenda: 0 Note Initiated On: 01/31/2020 1:51 PM Estimated Blood Loss: Estimated blood loss: none.
[2020-01-31] MEDS ORDERED: ALBUTEROL 6.7GM INHALER **FOR ANES. CART/OMNICELL ONLY As Ordered ONE (14:19)
[2020-01-31] MEDS ORDERED: propofoL 200 MG/20 ML VIAL As Ordered ONE (14:35)
--- NOTE | 2020-01-31 14:50 | ROOR ---
Patient Name: Gayla Gregory Procedure Date: 01/31/2020 1:51 PM Date of : 1955 Age: 64 Room: [facility] Gender: Female Note Status: Finalized Procedure: Colonoscopy Indications: Generalized abdominal pain, Change in bowel habits, Diarrhea Providers: Paolo ALONSO MD Referring MD: VESNA ESCALERA NP Requesting Provider: Medicines: Monitored Anesthesia Care Complications: No immediate complications. Procedure: Pre-Anesthesia Assessment: - The heart rate, respiratory rate, oxygen saturations, blood pressure, adequacy of pulmonary ventilation, and response to care were monitored throughout the procedure. The Colonoscope was introduced through the anus and advanced to 10 cm into the ileum. The colonoscopy was performed without difficulty. The patient tolerated the procedure well. The quality of the bowel preparation was adequate. Findings: The perianal and digital rectal examinations were normal. A 5 mm polyp was found in the ascending colon. The polyp was sessile. The polyp was removed with a cold snare. Resection and retrieval were complete. A 5 mm polyp was found in the splenic flexure. The polyp was sessile. The polyp was removed with a cold snare. Resection and retrieval were complete. A 5 mm polyp was found in the sigmoid colon. The polyp was sessile. The polyp was removed with a cold snare. Resection and retrieval were complete. Multiple medium-mouthed diverticula were found in the sigmoid colon. Internal hemorrhoids were found during retroflexion. The hemorrhoids were medium-sized. Biopsies for histology were taken with a cold forceps from the entire colon for evaluation of microscopic colitis. Fluid aspiration was performed. Sample(s) were sent for Clostridium difficile. The terminal ileum appeared normal. Impression: - The examined portion of the ileum was normal. - One 5 mm polyp in the ascending colon, removed with a cold snare. Resected and retrieved. - One 5 mm polyp at the splenic flexure, removed with a cold snare. Resected and retrieved. - One 5 mm polyp in the sigmoid colon, removed with a cold snare. Resected and retrieved. - Diverticulosis in the sigmoid colon. - Internal hemorrhoids. - Biopsies were taken with a cold forceps from the entire colon for evaluation of microscopic colitis. - Fluid aspiration was performed. Recommendation: - Repeat colonoscopy in 3 years for surveillance. - Telephone endoscopist for pathology results in 2 weeks. Paolo Alonso MD Paolo ALONSO MD 01/31/2020 2:49:56 PM Electronically signed by Paolo ALONSO MD Number of Addenda: 0 Note Initiated On: 01/31/2020 1:51 PM Estimated Blood Loss: Estimated blood loss: none.
[2020-01-31 15:10] VITALS: BP 127/66
[2020-01-31 18:11] LABS: CLOSTRIDIUM DIFFICILE PCR POSITIVE (NEGATIVE)
== END 2020-01-31 15:31 | disposition home or self-care (01) ==
LOC: M OPP 12:01
PROVIDERS: ATTEND Internal Medicine Gastroenterology
DX: K63.5 Polyp of colon (principal); K64.8 Other hemorrhoids; R10.84 Generalized abdominal pain; R19.4 Change in bowel habit; R19.7 Diarrhea, unspecified; K57.30 Diverticulosis of large intestine without perforation or abscess without bleeding; K22.8 Other specified diseases of esophagus; K31.7 Polyp of stomach and duodenum; R12 Heartburn; R11.2 Nausea with vomiting, unspecified; E11.9 Type 2 diabetes mellitus without complications; Z79.899 Other long term (current) drug therapy; Z88.0 Allergy status to penicillin; Z88.5 Allergy status to narcotic agent; Z91.040 Latex allergy status
CPT/HCPCS: 43239; 45380; 45385; 87493; 88305; J2405; J2765

== ENCOUNTER → 2020-06-01 | Outpatient (CLI) | payer MEDICARE ==
[~2020-06-01] MED LIST changes: -GABA-282 PO; +GABA-843 PO; -NS 1,000 ML IV ONE
--- NOTE | 2020-06-01 11:35 | ECWPNPC ---
PATIENT NAME: TRACY EARL : 1955 GENDER: FEMALE VISIT DATE: 06/01/2020 DISCHARGE DATE: 06/01/20 1028 VISIT LOCKED DATE TIME: PHYSICIAN: MY SILVER RESOURCE: MY SILVER REASON FOR APPOINTMENT 1. BILATERAL KNEES/ BACK- COMING BACK WITH HER HISTORY OF PRESENT ILLNESS DEPRESSION SCREENING: HERE FOR FOLLOW-UP AFTER INITIAL CONSULTATION IN AUGUST 2019. EFFORTS FROM CHRONIC LOW BACK PAIN AND BILATERAL KNEE PAIN. WAS ILL FOR 3 MONTHS BETWEEN SEPTEMBER AND DECEMBER WITH C. DIFFICILE. ALSO DURING THAT TIME SHE HAD PNEUMONIA. HISTORY OF MULTIPLE ALLERGIES TO MEDICATIONS. REPORTS SEVERE ANAPHYLACTIC REACTION TO LATEX PRODUCTS. REPORTS SEVERE FACIAL FLUSHING AND BURNING WITH EXPOSURE TO STEROID MEDICATION. HAS NEVER BEEN TESTED FOR PREDNISONE ALLERGY/STEROID ALLERGY. DR. MARTINEZ HAD RECOMMENDED LUMBAR THERAPEUTIC FACET BLOCK AT HIS LAST VISIT. WE WOULD NEED SUPERINTENDENT LOGGING EVALUATION OF POTENTIAL STEROID ALLERGY BEFORE PROCEEDING WITH INTERVENTIONAL THERAPY AT THE CLINIC. SHE IS ACCOMPANIED WITH HER IN THE EXAM ROOM. PATIENT IS BASICALLY WHEELCHAIR DEPENDENT FOR ANY DISTANCES. REPORTS LEG PAIN WITH AMBULATION. SHE IS MORBIDLY OBESE. PHQ-2 (2015 EDITION) LITTLE INTEREST OR PLEASURE IN DOING THINGS?NOT AT ALL FEELING DOWN, DEPRESSED, OR HOPELESS?NOT AT ALL TOTAL SCORE0 GENERAL: -. FALL RISK SCREENING: SCREENING :NO FALLS REPORTED IN THE LAST YEAR NONE PAIN SCREENING: PATIENT HAS A COMPLAINT OF ACUTE OR CHRONIC PAIN :YES LOCATION OF PAIN:ABDOMEN, LEG(S) PAIN BELOW KIDNEY AREA INTENSITY OF PAIN (SCALE OF 1 TO 10):6 WHAT DOES YOUR PAIN FEEL LIKE:SHARP, STABBING DURATION:CONTINOUS PAIN IS INCREASED BY:ACTIVITIES PAIN IS DECREASED BY:OTHERS ONLY ON GABAPENTIN, NO OTER PAIN MEDS NURSING NOTE: -. PAIN CENTER INTAKE QUESTIONS: DO YOU HAVE A HISTORY OF MRSA? :NO DO YOU TAKE A BLOOD THINNERS? :NO DO YOU HAVE ANY BLEEDING DISORDERS? :NO ANY NEW NUMBNESS OR WEAKNESS IN YOUR LEGS OR ARMS? :YES BOTH, LEGS ARE WORSE ANY PACEMAKER,DEFIBRILLATOR, OR DORSAL COLUMN STIMULATOR? :NO DO YOU HAVE ANY RASHES OR OPEN SORES? :NO ARE YOU ALLERGIC TO IV DYE? :NO ARE YOU DIABETIC? :YES ANY NEW PROBLEMS WITH YOUR MEDICATIONS? :NO HAVE YOU RECEIVED A VACCINE IN THE PAST 30 DAYS? :YES FLU VAC DO YOU PLAN TO RECEIVE A VACCINE IN THE NEXT 21 DAYS? :NO DO YOU NEED ANY PRESCRIPTION? :NO DO YOU TAKE ANY IMMUNOSUPPRESSIVE MEDICATIONS? :NO IS THERE A CHANCE YOU COULD BE ? :NO ARE YOU BREAST FEEDING? :NO CURRENT MEDICATIONS TAKING ZETIA 10 MG TABLET 1 TABLET ORALLY ONCE A DAY TAKING POTASSIUM CHLORIDE TABLET BID 10 MEQ TAKING FUROSEMIDE 80 MG TABLET 1 TABLET ORALLY ONCE A DAY NEEDED TAKING BISOPROLOL-HYDROCHLOROTHIAZIDE 10-6.25 MG TABLET 1 TABLET ORALLY ONCE A DAY TAKING TRADJENTA 5 MG TABLET 1 TABLET ORALLY ONCE A DAY TAKING FENOFIBRATE 145 MG TABLET 1 TABLET ORALLY ONCE A DAY TAKING EZETIMIBE 10 MG TABLET 1 TABLET ORALLY ONCE A DAY TAKING SYNTHROID 175 MCG TABLET 1 TABLET ON AN EMPTY STOMACH IN THE MORNING ORALLY ONCE A DAY TAKING GLIMEPIRIDE 1 MG TABLET 1 TABLET WITH BREAKFAST OR THE FIRST MAIN MEAL OF THE DAY ORALLY ONCE A DAY TAKING GABAPENTIN 300 MG CAPSULE 1 CAPSULE ORALLY 900 MG TID, NOTES: 900 MG TID TAKING LEVOCETIRIZINE DIHYDROCHLORIDE 5 MG TABLET 1 TABLET IN THE EVENING ORALLY ONCE A DAY TAKING LORATADINE 10 MG TABLET 1 TABLET ORALLY ONCE A DAY TAKING FAMOTIDINE 20 MG TABLET 1 CAP ORALLY BID TAKING DIAZEPAM 5 MG TABLET 1 TABLET NEEDED ORALLY IN WAY TO MRI UNIT AND AT MRI UNIT THE DAY OF MRI ( MDD2) TAKING LANSOPRAZOLE 30 MG CAPSULE DELAYED RELEASE 1 CAPSULE ORALLY TWICE DAILY TAKING CEFDINIR 300 MG CAPSULE 1 CAP ORALLY TWICE DAILY TAKING PROMETHAZINE HCL 12.5 MG TABLET 1 TABLET NEEDED ORALLY EVERY 6 HRS TAKING IPRATROPIUM-ALBUTEROL 0.5-2.5 (3) MG/3ML SOLUTION 3 ML NEEDED INHALATION EVERY 4-6 HRS TAKING ALBUTEROL SULFATE HFA 108 (90 BASE) MCG/ACT AEROSOL SOLUTION 1 PUFF NEEDED INHALATION EVERY 4 HRS NOT-TAKING VITAMIN B12 1000 MCG TABLET EXTENDED RELEASE 1 TABLET ORALLY ONCE A DAY NOT-TAKING CLARITIN-D 24 HOUR 10-240 MG TABLET EXTENDED RELEASE 24 HOUR 1 TABLET NEEDED ORALLY ONCE A DAY NOT-TAKING ORPHENADRINE CITRATE 100 MG TABLET 1 TABLET AT BEDTIME ORALLY ONCE A DAY NOT-TAKING ZANTAC 150 MAXIMUM STRENGTH 150 MG TABLET 1 TABLET AT BEDTIME ORALLY ONCE A DAY NOT-TAKING AMOXICILLIN 500 MG TABLET 1 TABLET ORALLY EVERY 12 HRS NOT-TAKING MEDROL 4 MG TABLET THERAPY PACK DIRECTED ORALLY DAILY NOT-TAKING COLESTIPOL HCL 1 GM TABLET 2 TABLETS ORALLY ONCE A DAY NOT-TAKING FUROSEMIDE 1 TAB ORAL NOT-TAKING LISINOPRIL 10 MG TABLET 1 TABLET ORALLY ONCE A DAY NOT-TAKING CALCIUM 150 MG TABLET ORALLY NOT-TAKING ACETAMINOPHEN 500 MG CAPSULE 2 TABS ORALLY TWICE DAILY NOT-TAKING OMEPRAZOLE 40 MG CAPSULE DELAYED RELEASE 1 CAPSULE ORALLY BID NOT-TAKING VITAMIN D 42923 UNIT CAPSULE 1 CAPSULE ORALLY NOT-TAKING CELEBREX 100 MG CAPSULE 1 CAPSULE WITH FOOD ORALLY BID MEDICATION LIST REVIEWED AND RECONCILED WITH THE PATIENT PAST MEDICAL HISTORY HYPERTENSION DIABETES HIGH CHOLESTEROL ARTHRITIS-BILATERAL KNEES BACK PAIN BRONCHITIS, PNEUMONIA ALLERGIES AUGMENTIN: STOMACH CRAMPS - SIDE EFFECTS VICODIN: BURNING SENSATION ACROSS CHEST - ALLERGY LATEX GLOVES: LIPS TURNED BLUE AT DENTIST APPT - ALLERGY STEROIDS- PT UNAWARE WHICH STEROID: FACIAL REDNESS AND STATES SHE GIT REALLY HOT - SIDE EFFECTS SURGICAL HISTORY NECK SURGERY- "SCRAPED DISCS" 05/29/12 BILATERAL BREAST REDUCTION 05/03/2008 HYSTERECTOMY 10/30/2007 PINICULECTOMY 08/11/2007 REMOVAL OF NAVEL 01/2008 REMOVAL OF FATTY TUMOR FRO LEFT HIP 05/2005 GALL BLADDER REMOVAL 08/2005 OVARY REMOVAL 03/2000 THROGLYOSCYAL CYST REMOVAL 1960 TONSILLECTOMY 1957 BILATERAL CATARACT REMOVAL WITH LENS IMPLANT 12/2014 THYROIDECTOMY 01/2017 FAMILY HISTORY FATHER: 82 YRS MOTHER: 81 YRS SIBLINGS: 42 YRS, DIAGNOSED WITH DIABETES 2DAUGHTER(S) - HEALTHY. FATHER-ALSMOTHER- ARTERIAL SCLEROSISSIBLING/ALIVE- DIABETES, COPD SIBLING/ALIVE- DIABETES/ BACK ISSUES1 DAUGHTER HAS PARACARDITIS. SOCIAL HISTORY GENERAL: TOBACCO USE ARE YOU A:NONSMOKER LATEX QUESTIONNAIRE LATEX ALLERGY : HAVE YOU EVER DEVELOPED ANY TYPE OF REACTION AFTER HANDLING LATEX PRODUCTS SUCH RUBBER GLOVES, CONDOMS, DIAPHRAGMS, BALLOONS, SOCKS, OR UNDERWEAR?YES - PLEASE INDICATE :RUBBER GLOVES LATEX ALLERGY : HAVE YOU EVER DEVELOPED ANY TYPE OF REACTION DURING OR AFTER DENTAL APPOINTMENT, VAGINAL/RECTAL EXAMINATION, SURGICAL PROCEDURE, OR ANY OTHER EXPOSURE?YES - PLEASE INDICATE :DENTAL PROCEDURE LATEX RISK : HAVE YOU EVER HAD ANY DIFFICULTY BREATHING OR HIVES AFTER EATING OR HANDLING ANY FRUITS, OR VEGETABLES; SUCH KIWI, BANANAS, STONE FRUITS, OR CHESTNUTSNO LATEX RISK : DO YOU HAVE A PREVIOUS PERSONAL HISTORY OF MORE THAN NINE SURGERIES, SPINA BIFIDA, OR REPEATED CATHERIZATIONS? YES - PLEASE INDICATE : > 9 SURGERIES LATEX RISK : ARE YOU FREQUENTLY EXPOSED TO LATEX PRODUCTS IN YOUR OCCUPATION?NO DATE ASKED : 06/01/2020 ALCOHOL SCREENING DID YOU HAVE A DRINK CONTAINING ALCOHOL IN THE PAST YEAR?NO POINTS0 INTERPRETATIONNEGATIVE RECREATIONAL DRUG USE DRUG USE?NO PATIENT DENIES ABUSE OR MISSUSED OF ANY MEDICATION DENIES PATIENT DENIES USE OF ANY ILLEGAL SUBSTANCE INCLUDING MARIJUANA OR COCAINE DENIES CAFFEINE CAFFEINE USE?NO HIV / HEP-C SCREENING HIV TEST OFFERED TO PATIENT:YES DATE OFFERED:12/13/2016 TEST ACCEPTED:NO HEP-C TEST OFFERED TO PATIENT:NO REASON:PATIENT DECLINED LATTER DAY LATTER DAY NO ANABAPTISM BELIEFS THAT WOULD IMPACT HEALTH CARE. LANGUAGE LANGUAGES SPOKEN:[place]ORE[place] EDUCATION LEVEL OF EDUCATION:HIGH SCHOOL BOCES- OFFICE MANAGEMENT LEARNING BARRIERS / SPECIAL NEEDS BARRIERS TO LEARNING?NO HEARING IMPAIRED?NO VISION IMPAIRED?YES COGNITIVELY IMPAIRED?NO :CORRECTIVE LENSES READINESS TO LEARN?YES LEARNING PREFERENCES?NO LEARNING CAPABILITIES PRESENT?YES EMOTIONAL BARRIERS?NO SPECIAL DEVICES?NO COIL INSPECTOR NEEDED?NO DOMESTIC VIOLENCE STATUS: DO YOU FEEL SAFE IN YOUR ENVIRONMENT?YES OCCUPATION: UNEMPLOYED. DIET: REGULAR. EXERCISE: NO REGULAR EXERCISE- DUE TO PAIN. MARITAL STATUS: . OTHERS AT HOME: SPOUSE. PAIN CLINIC PFS, CLERGY, PUBLIC HEALTH REFERRALS HAS THE PATIENT BEEN EDUCATED REGARDING HIS/HER PLAN OF CARE?YES HAS THE PATIENT BEEN EDUCATED REGARDING PAIN, THE RISK FOR PAIN, THE IMPORTANCE OF EFFECTIVE PAIN MANAGEMENT, AND THE PAIN ASSESSMENT PROCESS?YES HOUSING: OWNS MOBILE HOME. ADVANCE DIRECTIVE ADVANCE DIRECTIVE DISCUSSED WITH PATIENT:YES 10/12/2019 PT DOES NOT HAVE ANY ADVANCED DIRECTIVES. SHE STATES SHE ALREADY HAS INFORMATION ON HCP BUT HASN'T COMPLETED IT YET. ASSISTANCE WAS OFFERED INCOMPLETING FORM IF NEEDED. AD REVIEWED WITH PATIENT 09/09/2019 1207 NLJ. HOSPITALIZATION/MAJOR DIAGNOSTIC PROCEDURE SURGERIES COUGH 02/2019 HAD THROAT PROBLEMS, CLOSURE 12/2015 ABDOMINAL PAIN 1978 REVIEW OF SYSTEMS CONSTITUTIONAL: ANY RECENT FEVER NO . CHILLS NO . WEIGHT CHANGE OF UNKNOWN REASONS NO . GASTROENTEROLOGY: NEW UNEXPLAINABLE CHANGES IN BOWEL CONTROL NO . CONSTIPATION NO . GENITOURINARY: ANY NEW CHANGE IN BLADDER CONTROL? NO . NEUROLOGY: NEW ONSET DIZZINESS OR NEUROLOGICAL CHANGES NOT MENTIONED NO . NEW NUMBNESS OR PAIN PATTERNS NOT MENTIONED AND PERTINENT TO TODAY'S VISIT NO . CARDIOLOGY: NEW CHEST PRESSURE NO . NEW CHEST PAIN NO . RESPIRATORY: UNEXPLAINABLE COUGH NO . NEW SHORTNESS OF BREATH NO . VITAL SIGNS WT 358.4 LBS, HT 65.5 IN, BMI 58.73 INDEX, BP 109/60 MM HG, HR 90 /MIN, RR 18 /MIN, TEMP 97.0 F, OXYGEN SAT % 96%, SAFE IN ENV? (Y/N) YES, NA INITIALS AW 0950, REVIEWED BY: RAYMUNDO. EXAMINATION GENERAL EXAMINATION: GENERALAWAKE,ALERT ,PLEASANT . PSYCHAFFECT NORMAL . LUNGS:LUNG BAZAN ARE CLEAR TO AUSCULTATION BILATERALLY. GOOD MOVEMENT OF AIR . HEART:S1, S2 IN A REGULAR RATE AND RHYTHM. NO SIGNIFICANT MURMURS, RUBS OR GALLOPS NOTED . ASSESSMENTS OTHER SPONDYLOSIS, LUMBOSACRAL REGION - M47.897 (PRIMARY) TREATMENT OTHER SPONDYLOSIS, LUMBOSACRAL REGION NOTES: DUE TO PATIENT'S REACTION TO PREDNISONE (SEVERE FACIAL AND CHEST FLUSHING, BURNING AND ITCHING ) WE WILL REFERRED TO SUPERINTENDENT LOGGING TO TEST FOR STEROID ALLERGY. WE'LL FOLLOW UP WITH PATIENT AFTER SUPERINTENDENT LOGGING EVALUATION TO ESTABLISH TREATMENT PLAN. REFERRAL TO:[facility] BETANCOURTALLERGY/IMMUNOLOGY REASON:SEVERE FACIAL SWELLING AND BURNING WITH EXPOSURE TO STEROID MEDICATION. EVALUATE FORCE STEROID ALLERGY TO ESTABLISH ABILITY TO USE STEROIDS AT THE PAIN CENTER. PROCEDURE CODES FA211 ESTABILISHED PATIENT [facility] CHARGE DISPOSITION & COMMUNICATION FOLLOW UP HAVE PATIENT CALL US AFTER SHE SEES SUPERINTENDENT LOGGING (REASON: REVIEW ALLERGY REPORT, LUMBOSACRAL SPONDYLOSIS) ELECTRONICALLY SIGNED BY FRANCIS BENNETT ON 06/01/2020 AT 11:34 AM EDT DISCLAIMER : THIS IS A VISIT SUMMARY EXTRACTED FROM THE [employer] CHART. IT IS NOT A COPY OF THE [employer] PROGRESS NOTE. EARNESTINE
--- NOTE | 2020-06-01 11:36 | ECWPNPC ---
PATIENT NAME: TRACY EARL : 1955 GENDER: FEMALE VISIT DATE: 06/01/2020 DISCHARGE DATE: 06/01/20 1028 VISIT LOCKED DATE TIME: PHYSICIAN: MY SILVER RESOURCE: MY SILVER REASON FOR APPOINTMENT 1. BILATERAL KNEES/ BACK- COMING BACK WITH HER HISTORY OF PRESENT ILLNESS DEPRESSION SCREENING: HERE FOR FOLLOW-UP AFTER INITIAL CONSULTATION IN AUGUST 2019. EFFORTS FROM CHRONIC LOW BACK PAIN AND BILATERAL KNEE PAIN. WAS ILL FOR 3 MONTHS BETWEEN SEPTEMBER AND DECEMBER WITH C. DIFFICILE. ALSO DURING THAT TIME SHE HAD PNEUMONIA. HISTORY OF MULTIPLE ALLERGIES TO MEDICATIONS. REPORTS SEVERE ANAPHYLACTIC REACTION TO LATEX PRODUCTS. REPORTS SEVERE FACIAL FLUSHING AND BURNING WITH EXPOSURE TO STEROID MEDICATION. HAS NEVER BEEN TESTED FOR PREDNISONE ALLERGY/STEROID ALLERGY. DR. MARTINEZ HAD RECOMMENDED LUMBAR THERAPEUTIC FACET BLOCK AT HIS LAST VISIT. WE WOULD NEED KNOWLEDGE ANALYST EVALUATION OF POTENTIAL STEROID ALLERGY BEFORE PROCEEDING WITH INTERVENTIONAL THERAPY AT THE CLINIC. SHE IS ACCOMPANIED WITH HER IN THE EXAM ROOM. PATIENT IS BASICALLY WHEELCHAIR DEPENDENT FOR ANY DISTANCES. REPORTS LEG PAIN WITH AMBULATION. SHE IS MORBIDLY OBESE. PHQ-2 (2015 EDITION) LITTLE INTEREST OR PLEASURE IN DOING THINGS?NOT AT ALL FEELING DOWN, DEPRESSED, OR HOPELESS?NOT AT ALL TOTAL SCORE0 GENERAL: -. FALL RISK SCREENING: SCREENING :NO FALLS REPORTED IN THE LAST YEAR NONE PAIN SCREENING: PATIENT HAS A COMPLAINT OF ACUTE OR CHRONIC PAIN :YES LOCATION OF PAIN:ABDOMEN, LEG(S) PAIN BELOW KIDNEY AREA INTENSITY OF PAIN (SCALE OF 1 TO 10):6 WHAT DOES YOUR PAIN FEEL LIKE:SHARP, STABBING DURATION:CONTINOUS PAIN IS INCREASED BY:ACTIVITIES PAIN IS DECREASED BY:OTHERS ONLY ON GABAPENTIN, NO OTER PAIN MEDS NURSING NOTE: -. PAIN CENTER INTAKE QUESTIONS: DO YOU HAVE A HISTORY OF MRSA? :NO DO YOU TAKE A BLOOD THINNERS? :NO DO YOU HAVE ANY BLEEDING DISORDERS? :NO ANY NEW NUMBNESS OR WEAKNESS IN YOUR LEGS OR ARMS? :YES BOTH, LEGS ARE WORSE ANY PACEMAKER,DEFIBRILLATOR, OR DORSAL COLUMN STIMULATOR? :NO DO YOU HAVE ANY RASHES OR OPEN SORES? :NO ARE YOU ALLERGIC TO IV DYE? :NO ARE YOU DIABETIC? :YES ANY NEW PROBLEMS WITH YOUR MEDICATIONS? :NO HAVE YOU RECEIVED A VACCINE IN THE PAST 30 DAYS? :YES FLU VAC DO YOU PLAN TO RECEIVE A VACCINE IN THE NEXT 21 DAYS? :NO DO YOU NEED ANY PRESCRIPTION? :NO DO YOU TAKE ANY IMMUNOSUPPRESSIVE MEDICATIONS? :NO IS THERE A CHANCE YOU COULD BE ? :NO ARE YOU BREAST FEEDING? :NO CURRENT MEDICATIONS TAKING ZETIA 10 MG TABLET 1 TABLET ORALLY ONCE A DAY TAKING POTASSIUM CHLORIDE TABLET BID 10 MEQ TAKING FUROSEMIDE 80 MG TABLET 1 TABLET ORALLY ONCE A DAY NEEDED TAKING BISOPROLOL-HYDROCHLOROTHIAZIDE 10-6.25 MG TABLET 1 TABLET ORALLY ONCE A DAY TAKING TRADJENTA 5 MG TABLET 1 TABLET ORALLY ONCE A DAY TAKING FENOFIBRATE 145 MG TABLET 1 TABLET ORALLY ONCE A DAY TAKING EZETIMIBE 10 MG TABLET 1 TABLET ORALLY ONCE A DAY TAKING SYNTHROID 175 MCG TABLET 1 TABLET ON AN EMPTY STOMACH IN THE MORNING ORALLY ONCE A DAY TAKING GLIMEPIRIDE 1 MG TABLET 1 TABLET WITH BREAKFAST OR THE FIRST MAIN MEAL OF THE DAY ORALLY ONCE A DAY TAKING GABAPENTIN 300 MG CAPSULE 1 CAPSULE ORALLY 900 MG TID, NOTES: 900 MG TID TAKING LEVOCETIRIZINE DIHYDROCHLORIDE 5 MG TABLET 1 TABLET IN THE EVENING ORALLY ONCE A DAY TAKING LORATADINE 10 MG TABLET 1 TABLET ORALLY ONCE A DAY TAKING FAMOTIDINE 20 MG TABLET 1 CAP ORALLY BID TAKING DIAZEPAM 5 MG TABLET 1 TABLET NEEDED ORALLY IN WAY TO MRI UNIT AND AT MRI UNIT THE DAY OF MRI ( MDD2) TAKING LANSOPRAZOLE 30 MG CAPSULE DELAYED RELEASE 1 CAPSULE ORALLY TWICE DAILY TAKING CEFDINIR 300 MG CAPSULE 1 CAP ORALLY TWICE DAILY TAKING PROMETHAZINE HCL 12.5 MG TABLET 1 TABLET NEEDED ORALLY EVERY 6 HRS TAKING IPRATROPIUM-ALBUTEROL 0.5-2.5 (3) MG/3ML SOLUTION 3 ML NEEDED INHALATION EVERY 4-6 HRS TAKING ALBUTEROL SULFATE HFA 108 (90 BASE) MCG/ACT AEROSOL SOLUTION 1 PUFF NEEDED INHALATION EVERY 4 HRS NOT-TAKING VITAMIN B12 1000 MCG TABLET EXTENDED RELEASE 1 TABLET ORALLY ONCE A DAY NOT-TAKING CLARITIN-D 24 HOUR 10-240 MG TABLET EXTENDED RELEASE 24 HOUR 1 TABLET NEEDED ORALLY ONCE A DAY NOT-TAKING ORPHENADRINE CITRATE 100 MG TABLET 1 TABLET AT BEDTIME ORALLY ONCE A DAY NOT-TAKING ZANTAC 150 MAXIMUM STRENGTH 150 MG TABLET 1 TABLET AT BEDTIME ORALLY ONCE A DAY NOT-TAKING AMOXICILLIN 500 MG TABLET 1 TABLET ORALLY EVERY 12 HRS NOT-TAKING MEDROL 4 MG TABLET THERAPY PACK DIRECTED ORALLY DAILY NOT-TAKING COLESTIPOL HCL 1 GM TABLET 2 TABLETS ORALLY ONCE A DAY NOT-TAKING FUROSEMIDE 1 TAB ORAL NOT-TAKING LISINOPRIL 10 MG TABLET 1 TABLET ORALLY ONCE A DAY NOT-TAKING CALCIUM 150 MG TABLET ORALLY NOT-TAKING ACETAMINOPHEN 500 MG CAPSULE 2 TABS ORALLY TWICE DAILY NOT-TAKING OMEPRAZOLE 40 MG CAPSULE DELAYED RELEASE 1 CAPSULE ORALLY BID NOT-TAKING VITAMIN D 88404 UNIT CAPSULE 1 CAPSULE ORALLY NOT-TAKING CELEBREX 100 MG CAPSULE 1 CAPSULE WITH FOOD ORALLY BID MEDICATION LIST REVIEWED AND RECONCILED WITH THE PATIENT PAST MEDICAL HISTORY HYPERTENSION DIABETES HIGH CHOLESTEROL ARTHRITIS-BILATERAL KNEES BACK PAIN BRONCHITIS, PNEUMONIA ALLERGIES AUGMENTIN: STOMACH CRAMPS - SIDE EFFECTS VICODIN: BURNING SENSATION ACROSS CHEST - ALLERGY LATEX GLOVES: LIPS TURNED BLUE AT DENTIST APPT - ALLERGY STEROIDS- PT UNAWARE WHICH STEROID: FACIAL REDNESS AND STATES SHE GIT REALLY HOT - SIDE EFFECTS SURGICAL HISTORY NECK SURGERY- "SCRAPED DISCS" 05/29/12 BILATERAL BREAST REDUCTION 05/03/2008 HYSTERECTOMY 10/30/2007 PINICULECTOMY 08/11/2007 REMOVAL OF NAVEL 01/2008 REMOVAL OF FATTY TUMOR FRO LEFT HIP 05/2005 GALL BLADDER REMOVAL 08/2005 OVARY REMOVAL 03/2000 THROGLYOSCYAL CYST REMOVAL 1960 TONSILLECTOMY 1957 BILATERAL CATARACT REMOVAL WITH LENS IMPLANT 12/2014 THYROIDECTOMY 01/2017 FAMILY HISTORY FATHER: 82 YRS MOTHER: 81 YRS SIBLINGS: 42 YRS, DIAGNOSED WITH DIABETES 2DAUGHTER(S) - HEALTHY. FATHER-ALSMOTHER- ARTERIAL SCLEROSISSIBLING/ALIVE- DIABETES, COPD SIBLING/ALIVE- DIABETES/ BACK ISSUES1 DAUGHTER HAS PARACARDITIS. SOCIAL HISTORY GENERAL: TOBACCO USE ARE YOU A:NONSMOKER LATEX QUESTIONNAIRE LATEX ALLERGY : HAVE YOU EVER DEVELOPED ANY TYPE OF REACTION AFTER HANDLING LATEX PRODUCTS SUCH RUBBER GLOVES, CONDOMS, DIAPHRAGMS, BALLOONS, SOCKS, OR UNDERWEAR?YES - PLEASE INDICATE :RUBBER GLOVES LATEX ALLERGY : HAVE YOU EVER DEVELOPED ANY TYPE OF REACTION DURING OR AFTER DENTAL APPOINTMENT, VAGINAL/RECTAL EXAMINATION, SURGICAL PROCEDURE, OR ANY OTHER EXPOSURE?YES - PLEASE INDICATE :DENTAL PROCEDURE LATEX RISK : HAVE YOU EVER HAD ANY DIFFICULTY BREATHING OR HIVES AFTER EATING OR HANDLING ANY FRUITS, OR VEGETABLES; SUCH KIWI, BANANAS, STONE FRUITS, OR CHESTNUTSNO LATEX RISK : DO YOU HAVE A PREVIOUS PERSONAL HISTORY OF MORE THAN NINE SURGERIES, SPINA BIFIDA, OR REPEATED CATHERIZATIONS? YES - PLEASE INDICATE : > 9 SURGERIES LATEX RISK : ARE YOU FREQUENTLY EXPOSED TO LATEX PRODUCTS IN YOUR OCCUPATION?NO DATE ASKED : 06/01/2020 ALCOHOL SCREENING DID YOU HAVE A DRINK CONTAINING ALCOHOL IN THE PAST YEAR?NO POINTS0 INTERPRETATIONNEGATIVE RECREATIONAL DRUG USE DRUG USE?NO PATIENT DENIES ABUSE OR MISSUSED OF ANY MEDICATION DENIES PATIENT DENIES USE OF ANY ILLEGAL SUBSTANCE INCLUDING MARIJUANA OR COCAINE DENIES CAFFEINE CAFFEINE USE?NO HIV / HEP-C SCREENING HIV TEST OFFERED TO PATIENT:YES DATE OFFERED:12/13/2016 TEST ACCEPTED:NO HEP-C TEST OFFERED TO PATIENT:NO REASON:PATIENT DECLINED ZOROASTRIANISM ZOROASTRIANISM NO CHURCH BELIEFS THAT WOULD IMPACT HEALTH CARE. LANGUAGE LANGUAGES SPOKEN:BAHRAINI EDUCATION LEVEL OF EDUCATION:HIGH SCHOOL BOCES- OFFICE MANAGEMENT LEARNING BARRIERS / SPECIAL NEEDS BARRIERS TO LEARNING?NO HEARING IMPAIRED?NO VISION IMPAIRED?YES COGNITIVELY IMPAIRED?NO :CORRECTIVE LENSES READINESS TO LEARN?YES LEARNING PREFERENCES?NO LEARNING CAPABILITIES PRESENT?YES EMOTIONAL BARRIERS?NO SPECIAL DEVICES?NO SCHOOL AGE PROGRAM ASSOCIATE NEEDED?NO DOMESTIC VIOLENCE STATUS: DO YOU FEEL SAFE IN YOUR ENVIRONMENT?YES OCCUPATION: UNEMPLOYED. DIET: REGULAR. EXERCISE: NO REGULAR EXERCISE- DUE TO PAIN. MARITAL STATUS: . OTHERS AT HOME: SPOUSE. PAIN CLINIC PFS, CLERGY, PUBLIC HEALTH REFERRALS HAS THE PATIENT BEEN EDUCATED REGARDING HIS/HER PLAN OF CARE?YES HAS THE PATIENT BEEN EDUCATED REGARDING PAIN, THE RISK FOR PAIN, THE IMPORTANCE OF EFFECTIVE PAIN MANAGEMENT, AND THE PAIN ASSESSMENT PROCESS?YES HOUSING: OWNS MOBILE HOME. ADVANCE DIRECTIVE ADVANCE DIRECTIVE DISCUSSED WITH PATIENT:YES 10/12/2019 PT DOES NOT HAVE ANY ADVANCED DIRECTIVES. SHE STATES SHE ALREADY HAS INFORMATION ON HCP BUT HASN'T COMPLETED IT YET. ASSISTANCE WAS OFFERED INCOMPLETING FORM IF NEEDED. AD REVIEWED WITH PATIENT 09/09/2019 1207 NLJ. HOSPITALIZATION/MAJOR DIAGNOSTIC PROCEDURE SURGERIES COUGH 02/2019 HAD THROAT PROBLEMS, CLOSURE 12/2015 ABDOMINAL PAIN 1978 REVIEW OF SYSTEMS CONSTITUTIONAL: ANY RECENT FEVER NO . CHILLS NO . WEIGHT CHANGE OF UNKNOWN REASONS NO . GASTROENTEROLOGY: NEW UNEXPLAINABLE CHANGES IN BOWEL CONTROL NO . CONSTIPATION NO . GENITOURINARY: ANY NEW CHANGE IN BLADDER CONTROL? NO . NEUROLOGY: NEW ONSET DIZZINESS OR NEUROLOGICAL CHANGES NOT MENTIONED NO . NEW NUMBNESS OR PAIN PATTERNS NOT MENTIONED AND PERTINENT TO TODAY'S VISIT NO . CARDIOLOGY: NEW CHEST PRESSURE NO . NEW CHEST PAIN NO . RESPIRATORY: UNEXPLAINABLE COUGH NO . NEW SHORTNESS OF BREATH NO . VITAL SIGNS WT 358.4 LBS, HT 65.5 IN, BMI 58.73 INDEX, BP 109/60 MM HG, HR 90 /MIN, RR 18 /MIN, TEMP 97.0 F, OXYGEN SAT % 96%, SAFE IN ENV? (Y/N) YES, NA INITIALS AW 0950, REVIEWED BY: RAYMUNDO. EXAMINATION GENERAL EXAMINATION: GENERALAWAKE,ALERT ,PLEASANT . PSYCHAFFECT NORMAL . LUNGS:LUNG BAZAN ARE CLEAR TO AUSCULTATION BILATERALLY. GOOD MOVEMENT OF AIR . HEART:S1, S2 IN A REGULAR RATE AND RHYTHM. NO SIGNIFICANT MURMURS, RUBS OR GALLOPS NOTED . ASSESSMENTS OTHER SPONDYLOSIS, LUMBOSACRAL REGION - M47.897 (PRIMARY) TREATMENT OTHER SPONDYLOSIS, LUMBOSACRAL REGION NOTES: DUE TO PATIENT'S REACTION TO PREDNISONE (SEVERE FACIAL AND CHEST FLUSHING, BURNING AND ITCHING ) WE WILL REFERRED TO KNOWLEDGE ANALYST TO TEST FOR STEROID ALLERGY. WE'LL FOLLOW UP WITH PATIENT AFTER KNOWLEDGE ANALYST EVALUATION TO ESTABLISH TREATMENT PLAN. REFERRAL TO:KEIRA BETANCOURTALLERGY/IMMUNOLOGY REASON:SEVERE FACIAL SWELLING AND BURNING WITH EXPOSURE TO STEROID MEDICATION. EVALUATE FORCE STEROID ALLERGY TO ESTABLISH ABILITY TO USE STEROIDS AT THE PAIN CENTER. PROCEDURE CODES FA211 ESTABILISHED PATIENT [facility] CHARGE DISPOSITION & COMMUNICATION FOLLOW UP HAVE PATIENT CALL US AFTER SHE SEES KNOWLEDGE ANALYST (REASON: REVIEW ALLERGY REPORT, LUMBOSACRAL SPONDYLOSIS) ELECTRONICALLY SIGNED BY FRANCIS BENNETT ON 06/01/2020 AT 11:34 AM EDT DISCLAIMER : THIS IS A VISIT SUMMARY EXTRACTED FROM THE [employer] CHART. IT IS NOT A COPY OF THE [employer] PROGRESS NOTE. EARNESTINE
== END ==
LOC: M PAIN 09:30
PROVIDERS: ATTEND Nurse Practitioner Family
DX: M47.897 Other spondylosis, lumbosacral region (principal); I10 Essential (primary) hypertension; E11.9 Type 2 diabetes mellitus without complications; E78.00 Pure hypercholesterolemia, unspecified; M17.0 Bilateral primary osteoarthritis of knee; Z79.84 Long term (current) use of oral hypoglycemic drugs; Z79.899 Other long term (current) drug therapy; Z88.1 Allergy status to other antibiotic agents; Z88.5 Allergy status to narcotic agent; Z88.8 Allergy status to other drugs, medicaments and biological substances; Z91.040 Latex allergy status

== ENCOUNTER → 2020-10-12 | Outpatient (CLI) | payer MEDICARE ==
[~2020-10-12] MED LIST changes: +GABA-282 PO; -GABA-843 PO
--- NOTE | 2020-10-18 00:56 | ECWPNPC ---
PATIENT NAME: TRACY EARL : 1955 GENDER: FEMALE VISIT DATE: 10/12/2020 DISCHARGE DATE: 10/12/20 1452 VISIT LOCKED DATE TIME: PHYSICIAN: MY SILVER RESOURCE: MY SILVER REASON FOR APPOINTMENT 1. F/U/DISCUSS ALLERGY PAPERWORK HISTORY OF PRESENT ILLNESS GENERAL: HERE FOR FOLLOW-UP OF CHRONIC LOW BACK PAIN. WE HAD HER BE CLEARED BY MULTIPLE SLIDE OPERATOR DUE TO REPORTS OF SIGNIFICANT FACIAL FLUSHING WITH USE OF STEROIDS IN THE PAST. REPORT IS REVIEWED FROM MULTIPLE SLIDE OPERATOR AND THEY DO NOT FEEL THOUGH SHE HAS HAD AN ALLERGIC REACTION TO STEROIDS. REVIEWED MRI OF THE LUMBOSACRAL SPINE AND DISCUSSED TREATMENT PLAN. SHE IS ACCOMPANIED IN EXAM ROOM WITH HER SIGNIFICANT OTHER. WE DISCUSSED THE FACT THAT SHE NEEDS TO START A WALKING PROGRAM DUE TO THE FACT THAT SHE IS BECOMING WHEELCHAIR DEPENDENT. SHE IS DECONDITIONED.-SHE IS AWARE THAT SITTING FREQUENTLY WILL MAKE PAIN WORSE AND ADD TO HER WEAKNESS IN THE LOWER EXTREMITIES. -. FALL RISK SCREENING: SCREENING :NO FALLS REPORTED IN THE LAST YEAR PAIN SCREENING: PATIENT HAS A COMPLAINT OF ACUTE OR CHRONIC PAIN :YES LOCATION OF PAIN:LOW BACK INTENSITY OF PAIN (SCALE OF 1 TO 10):8 WHAT DOES YOUR PAIN FEEL LIKE:THROBBING DURATION:INTERMITTENT PAIN IS INCREASED BY:ACTIVITIES PAIN IS DECREASED BY:SITTING NURSING NOTE: - -. PAIN CENTER INTAKE QUESTIONS: DO YOU HAVE A HISTORY OF MRSA? :NO DO YOU TAKE A BLOOD THINNERS? :NO DO YOU HAVE ANY BLEEDING DISORDERS? :NO ANY NEW NUMBNESS OR WEAKNESS IN YOUR LEGS OR ARMS? :YES RIGHT ARM ANY PACEMAKER,DEFIBRILLATOR, OR DORSAL COLUMN STIMULATOR? :NO DO YOU HAVE ANY RASHES OR OPEN SORES? :NO ARE YOU ALLERGIC TO IV DYE? :NO ARE YOU DIABETIC? :YES ANY NEW PROBLEMS WITH YOUR MEDICATIONS? :NO HAVE YOU RECEIVED A VACCINE IN THE PAST 30 DAYS? :NO DO YOU PLAN TO RECEIVE A VACCINE IN THE NEXT 21 DAYS? :NO DO YOU NEED ANY PRESCRIPTION? :NO DO YOU TAKE ANY IMMUNOSUPPRESSIVE MEDICATIONS? :NO ANY HISTORY OF SEIZURES? :NO ANY HISTORY OF CARDIAC ISSUES OR EVENTS? :NO DO YOU HAVE ANY KIDNEY OR LIVER DISEASE? :NO DO YOU HAVE SLEEP APNEA? :NO ANY RECENT HEAD INJURY? :NO DO YOU HAVE ANY NEW INFECTIONS? :NO IS THERE A CHANCE YOU COULD BE ? :NO ARE YOU BREAST FEEDING? :NO WHEN DID YOU LAST EAT? : - WHEN DID YOU LAST DRINK? : - WHAT DID YOU LAST DRINK? : - NAME OF PERSON DRIVING YOU HOME? : - DO YOU HAVE ANY OTHER QUESTIONS OR CONCERNS? : - CURRENT MEDICATIONS TAKING ZETIA 10 MG TABLET 1 TABLET ORALLY ONCE A DAY TAKING POTASSIUM CHLORIDE TABLET BID 10 MEQ TAKING FUROSEMIDE 80 MG TABLET 1 TABLET ORALLY ONCE A DAY NEEDED TAKING BISOPROLOL-HYDROCHLOROTHIAZIDE 10-6.25 MG TABLET 1 TABLET ORALLY ONCE A DAY TAKING TRADJENTA 5 MG TABLET 1 TABLET ORALLY ONCE A DAY TAKING FENOFIBRATE 145 MG TABLET 1 TABLET ORALLY ONCE A DAY TAKING EZETIMIBE 10 MG TABLET 1 TABLET ORALLY ONCE A DAY TAKING SYNTHROID 175 MCG TABLET 1 TABLET ON AN EMPTY STOMACH IN THE MORNING ORALLY ONCE A DAY TAKING GLIMEPIRIDE 1 MG TABLET 1 TABLET WITH BREAKFAST OR THE FIRST MAIN MEAL OF THE DAY ORALLY ONCE A DAY TAKING GABAPENTIN 300 MG CAPSULE 1 CAPSULE ORALLY 900 MG TID TAKING LEVOCETIRIZINE DIHYDROCHLORIDE 5 MG TABLET 1 TABLET IN THE EVENING ORALLY ONCE A DAY TAKING LORATADINE 10 MG TABLET 1 TABLET ORALLY ONCE A DAY TAKING FAMOTIDINE 20 MG TABLET 1 CAP ORALLY BID TAKING LANSOPRAZOLE 30 MG CAPSULE DELAYED RELEASE 1 CAPSULE ORALLY TWICE DAILY TAKING PROMETHAZINE HCL 12.5 MG TABLET 1 TABLET NEEDED ORALLY EVERY 6 HRS TAKING IPRATROPIUM-ALBUTEROL 0.5-2.5 (3) MG/3ML SOLUTION 3 ML NEEDED INHALATION EVERY 4-6 HRS TAKING ALBUTEROL SULFATE HFA 108 (90 BASE) MCG/ACT AEROSOL SOLUTION 1 PUFF NEEDED INHALATION EVERY 4 HRS NOT-TAKING DIAZEPAM 5 MG TABLET [address] ORALLY IN WAY TO MRI UNIT AND AT MRI UNIT THE DAY OF MRI ( MDD2) NOT-TAKING CEFDINIR 300 MG CAPSULE 1 CAP ORALLY TWICE DAILY NOT-TAKING VITAMIN B12 1000 MCG TABLET EXTENDED RELEASE 1 TABLET ORALLY ONCE A DAY NOT-TAKING CLARITIN-D 24 HOUR 10-240 MG TABLET EXTENDED RELEASE 24 HOUR 1 TABLET NEEDED ORALLY ONCE A DAY NOT-TAKING ORPHENADRINE CITRATE 100 MG TABLET 1 TABLET AT BEDTIME ORALLY ONCE A DAY NOT-TAKING ZANTAC 150 MAXIMUM STRENGTH 150 MG TABLET 1 TABLET AT BEDTIME ORALLY ONCE A DAY NOT-TAKING AMOXICILLIN 500 MG TABLET 1 TABLET ORALLY EVERY 12 HRS NOT-TAKING MEDROL 4 MG TABLET THERAPY PACK DIRECTED ORALLY DAILY NOT-TAKING COLESTIPOL HCL 1 GM TABLET 2 TABLETS ORALLY ONCE A DAY NOT-TAKING FUROSEMIDE 1 TAB ORAL NOT-TAKING LISINOPRIL 10 MG TABLET 1 TABLET ORALLY ONCE A DAY NOT-TAKING CALCIUM 150 MG TABLET ORALLY NOT-TAKING ACETAMINOPHEN 500 MG CAPSULE 2 TABS ORALLY TWICE DAILY NOT-TAKING OMEPRAZOLE 40 MG CAPSULE DELAYED RELEASE 1 CAPSULE ORALLY BID NOT-TAKING VITAMIN D 95138 UNIT CAPSULE 1 CAPSULE ORALLY NOT-TAKING CELEBREX 100 MG CAPSULE 1 CAPSULE WITH FOOD ORALLY BID MEDICATION LIST REVIEWED AND RECONCILED WITH THE PATIENT PAST MEDICAL HISTORY HYPERTENSION DIABETES HIGH CHOLESTEROL ARTHRITIS-BILATERAL KNEES BACK PAIN BRONCHITIS, PNEUMONIA ALLERGIES AUGMENTIN: STOMACH CRAMPS - SIDE EFFECTS VICODIN: BURNING SENSATION ACROSS CHEST - ALLERGY LATEX GLOVES: LIPS TURNED BLUE AT DENTIST APPT - ALLERGY STEROIDS- PT UNAWARE WHICH STEROID: FACIAL REDNESS AND STATES SHE GIT REALLY HOT - SIDE EFFECTS SOCIAL HISTORY GENERAL: TOBACCO USE ARE YOU A:NONSMOKER LATEX QUESTIONNAIRE LATEX ALLERGY : HAVE YOU EVER DEVELOPED ANY TYPE OF REACTION AFTER HANDLING LATEX PRODUCTS SUCH RUBBER GLOVES, CONDOMS, DIAPHRAGMS, BALLOONS, SOCKS, OR UNDERWEAR?YES - PLEASE INDICATE :RUBBER GLOVES LATEX ALLERGY : HAVE YOU EVER DEVELOPED ANY TYPE OF REACTION DURING OR AFTER DENTAL APPOINTMENT, VAGINAL/RECTAL EXAMINATION, SURGICAL PROCEDURE, OR ANY OTHER EXPOSURE?YES - PLEASE INDICATE :DENTAL PROCEDURE LATEX RISK : HAVE YOU EVER HAD ANY DIFFICULTY BREATHING OR HIVES AFTER EATING OR HANDLING ANY FRUITS, OR VEGETABLES; SUCH KIWI, BANANAS, STONE FRUITS, OR CHESTNUTSNO LATEX RISK : DO YOU HAVE A PREVIOUS PERSONAL HISTORY OF MORE THAN NINE SURGERIES, SPINA BIFIDA, OR REPEATED CATHERIZATIONS? YES - PLEASE INDICATE : > 9 SURGERIES LATEX RISK : ARE YOU FREQUENTLY EXPOSED TO LATEX PRODUCTS IN YOUR OCCUPATION?NO DATE ASKED : 10/12/2020 ALCOHOL USE: NO. ALCOHOL SCREENING DID YOU HAVE A DRINK CONTAINING ALCOHOL IN THE PAST YEAR?NO POINTS0 INTERPRETATIONNEGATIVE RECREATIONAL DRUG USE DRUG USE?NO PATIENT DENIES ABUSE OR MISSUSED OF ANY MEDICATION DENIES PATIENT DENIES USE OF ANY ILLEGAL SUBSTANCE INCLUDING MARIJUANA OR COCAINE DENIES CAFFEINE CAFFEINE USE?NO HIV / HEP-C SCREENING HIV TEST OFFERED TO PATIENT:YES DATE OFFERED:12/13/2016 TEST ACCEPTED:NO HEP-C TEST OFFERED TO PATIENT:NO REASON:PATIENT DECLINED YARSANI YARSANI NO HINDUISM BELIEFS THAT WOULD IMPACT HEALTH CARE. 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 DIET: REGULAR. EXERCISE: NO REGULAR EXERCISE- DUE TO PAIN. MARITAL STATUS: . OTHERS AT HOME: SPOUSE. - HAS THE PATIENT BEEN EDUCATED REGARDING HIS/HER PLAN OF CARE?YES HAS THE PATIENT BEEN EDUCATED REGARDING PAIN, THE RISK FOR PAIN, THE IMPORTANCE OF EFFECTIVE PAIN MANAGEMENT, AND THE PAIN ASSESSMENT PROCESS?YES HOUSING: OWNS MOBILE HOME. ADVANCE DIRECTIVE ADVANCE DIRECTIVE DISCUSSED WITH PATIENT:YES 10/12/2019 PT DOES NOT HAVE ANY ADVANCED DIRECTIVES. SHE STATES SHE ALREADY HAS INFORMATION ON HCP BUT HASN'T COMPLETED IT YET. ASSISTANCE WAS OFFERED INCOMPLETING FORM IF NEEDED. AD REVIEWED WITH PATIENT 09/09/2019 1207 NLJ. REVIEW OF SYSTEMS CONSTITUTIONAL: ANY RECENT FEVER NO . CHILLS NO . WEIGHT CHANGE OF UNKNOWN REASONS NO . GASTROENTEROLOGY: NEW UNEXPLAINABLE CHANGES IN BOWEL CONTROL NO . CONSTIPATION NO . GENITOURINARY: ANY NEW CHANGE IN BLADDER CONTROL? NO . NEUROLOGY: NEW ONSET DIZZINESS OR NEUROLOGICAL CHANGES NOT MENTIONED NO . NEW NUMBNESS OR PAIN PATTERNS NOT MENTIONED AND PERTINENT TO TODAY'S VISIT NO . CARDIOLOGY: NEW CHEST PRESSURE NO . PATIENT DENIES NO . RESPIRATORY: UNEXPLAINABLE COUGH NO . NEW SHORTNESS OF BREATH NO . VITAL SIGNS WT 358 LBS, HT 65.5 IN, BMI 58.66 INDEX, BP 126/73 MM HG, HR 66 /MIN, RR 18 /MIN, TEMP 97.1 F, OXYGEN SAT % 95%, SAFE IN ENV? (Y/N) YEST.THERESA CARDENAS. EXAMINATION GENERAL EXAMINATION: GENERALALERT, NO ACUTE DISTRESS . PSYCHAPPROPRIATE MOOD AND AFFECT . LUNGS:CLEAR TO AUSCULTATION BILATERALLY, NO WHEEZES, RHONCHI, RALES. HEART:NO MURMURS, REGULAR RATE AND RHYTHM. MUSCULOSKELETAL:WEAKNESS NOTED OVER LOWER EXTREMITIES . LUMBAR:POINT TENDERNESS NOTED OVER LUMBAR FACETS WITH FACET LOADING . DIAGNOSTIC TESTS REVIEWED MRI L/S SPINE-2019. ASSESSMENTS SPONDYLOSIS WITHOUT MYELOPATHY OR RADICULOPATHY, LUMBAR REGION - M47.816 (PRIMARY) TREATMENT SPONDYLOSIS WITHOUT MYELOPATHY OR RADICULOPATHY, LUMBAR REGION MEDICATION: OXYCODONE HCL TAB 5MG ORALLY (ORDERED FOR 10/19/2020) MEDICATION: VALIUM TAB 5MG ORALLY (DIAZEPAM) (ORDERED FOR 10/19/2020) SALINE LOCK (ORDERED FOR 10/24/2020) NOTES: BILATERAL THERAPEUTIC LUMBAR FACET BLOCK L3/4,L4/5,L5/S1 , PATIENT WAS ADVISED TO START A WALKING PROGRAM TO STRENGTHEN LUMBAR PARASPINAL MUSCLES AND IMPROVE MOBILITY. THEY WERE ADVISED THAT THIS WILL IMPROVE WEIGHT LOSS AND ALSO DEPRESSION/FIBROMYALGIA SYMPTOMS. ADVISED TO WALK 10 MINUTES EVERY OTHER DAY ON A FLAT SURFACE. EMPHASIZED THE IMPORTANCE OF DOING THIS CONSISTANTLY AND NOT SPORATICALLY TO AVOID INJURY. PRINTED AND REVIEWED PRE PROCEDURE WITH PATIENT ODESSA CARDENAS. DISPOSITION & COMMUNICATION FOLLOW UP POST PROCEDURE (REASON: BILATERAL THERAPEUTIC LUMBAR FACET BLOCK L3/4,L4/5,L5/S1) ELECTRONICALLY SIGNED BY FRANCIS BENNETT ON 10/17/2020 AT 12:34 PM EST DISCLAIMER : THIS IS A VISIT SUMMARY EXTRACTED FROM THE [employer] CHART. IT IS NOT A COPY OF THE [employer] PROGRESS NOTE. EARNESTINE
== END ==
LOC: M PAIN 13:45
PROVIDERS: ATTEND Nurse Practitioner Family
DX: M47.816 Spondylosis without myelopathy or radiculopathy, lumbar region (principal); I10 Essential (primary) hypertension; E11.9 Type 2 diabetes mellitus without complications; E78.00 Pure hypercholesterolemia, unspecified; M17.0 Bilateral primary osteoarthritis of knee; Z79.84 Long term (current) use of oral hypoglycemic drugs; Z79.899 Other long term (current) drug therapy; Z88.0 Allergy status to penicillin; Z88.5 Allergy status to narcotic agent; Z88.8 Allergy status to other drugs, medicaments and biological substances

== ENCOUNTER → 2020-10-13 | Outpatient (CLI) | payer MEDICARE | LOC: M LABSMTC 10:12 | PROVIDERS: ATTEND Anesthesiology | DX: Z11.52 Encounter for screening for COVID-19 (principal) ==

== ENCOUNTER → 2020-10-18 | Outpatient (CLI) | payer MEDICARE ==
[~2020-10-18] MED LIST changes: +BUPIVACAINE HCL 0.25% 30ML VIAL As Ordered ONE; +ISOVUE-M 300 61% 15ML VIAL As Ordered ONE; +LIDOCAINE 1% SDV 30ML VIAL As Ordered ONE; +TRIAMCINOLONE ACETONIDE SUSP 40 MG/ML VIAL (J3301) As Ordered ONE; +diazePAM 5MG TABLET As Ordered ONE; +oxyCODONE 5MG TAB As Ordered ONE
--- NOTE | 2020-10-18 11:14 | REP ---
INDICATION: BILATERAL THERAPEUTIC LUMBAR FACET BLOCK L3-L4, L4-L5, L5-S1. COMPARISON: None. TECHNIQUE: Intraoperative fluoroscopic imaging using portable C-arm technique. FINDINGS: Catheters and contrast overlies lumbar facet joints. Total fluoroscopic time 21.8 seconds. IMPRESSION: Findings consistent with lumbar facet block. <Electronically signed by Immanuel Nobles > 10/18/20 1650
--- NOTE | 2020-10-18 23:25 | ECWPNPC ---
PATIENT NAME: TRACY EARL : 1955 GENDER: FEMALE VISIT DATE: 10/18/2020 DISCHARGE DATE: 10/18/20 1059 VISIT LOCKED DATE TIME: PHYSICIAN: YANI MARTINEZ MD RESOURCE: YANI MARTINEZ MD REASON FOR APPOINTMENT 1. BILATERAL THERAPEUTIC LUMBAR FACET BLOCK L3-L4, L5-S1 HISTORY OF PRESENT ILLNESS GENERAL: -. FALL RISK SCREENING: SCREENING :NO FALLS REPORTED IN THE LAST YEAR PAIN SCREENING: PATIENT HAS A COMPLAINT OF ACUTE OR CHRONIC PAIN :YES LOCATION OF PAIN:LOW BACK, LEFT HIP, RIGHT HIP CONSTANT PAIN WITH WALKING. INTENSITY OF PAIN (SCALE OF 1 TO 10):7 WITH AMBULATION. INCREASES LONGER SHE IS STANDING/WALKING. WHAT DOES YOUR PAIN FEEL LIKE:BURNING, INTERMITTENT, SHARP, STABBING, TENDER, THROBBING, SORE, SHOOTING DURATION:ONLY WITH SPECIFIC ACTIVITIES WITH STANDING/AMBULATION PAIN IS INCREASED BY:ACTIVITIES, PROLONGED STANDING PAIN IS DECREASED BY:USE OF PAIN MEDICATIONS, SITTING, OTHERS REST NURSING NOTE: -. PAIN CENTER INTAKE QUESTIONS: DO YOU HAVE A HISTORY OF MRSA? :NO DO YOU TAKE A BLOOD THINNERS? :NO DO YOU HAVE ANY BLEEDING DISORDERS? :NO ANY NEW NUMBNESS OR WEAKNESS IN YOUR LEGS OR ARMS? :NO ANY PACEMAKER,DEFIBRILLATOR, OR DORSAL COLUMN STIMULATOR? :NO DO YOU HAVE ANY RASHES OR OPEN SORES? :NO ARE YOU ALLERGIC TO IV DYE? :NO ARE YOU DIABETIC? :YES ANY NEW PROBLEMS WITH YOUR MEDICATIONS? :NO HAVE YOU RECEIVED A VACCINE IN THE PAST 30 DAYS? :NO DO YOU PLAN TO RECEIVE A VACCINE IN THE NEXT 21 DAYS? :NO DO YOU TAKE ANY IMMUNOSUPPRESSIVE MEDICATIONS? :NO ANY HISTORY OF SEIZURES? :NO ANY HISTORY OF CARDIAC ISSUES OR EVENTS? :NO DO YOU HAVE ANY KIDNEY OR LIVER DISEASE? :NO DO YOU HAVE SLEEP APNEA? :YES DO YOU WEAR A CPAP?YES ANY RECENT HEAD INJURY? :NO DO YOU HAVE ANY NEW INFECTIONS? :NO IS THERE A CHANCE YOU COULD BE ? :NO ARE YOU BREAST FEEDING? :NO WHEN DID YOU LAST EAT? : -2100 10/17/20 WHEN DID YOU LAST DRINK? : -0600 10/18/20 WHAT DID YOU LAST DRINK? : -TEE PAUL NAME OF PERSON DRIVING YOU HOME? : - [facility]RISTI DO YOU HAVE ANY OTHER QUESTIONS OR CONCERNS? : - CURRENT MEDICATIONS TAKING ZETIA 10 MG TABLET 1 TABLET ORALLY ONCE A DAY TAKING POTASSIUM CHLORIDE TABLET BID 10 MEQ TAKING FUROSEMIDE 80 MG TABLET 1 TABLET ORALLY ONCE A DAY NEEDED TAKING BISOPROLOL-HYDROCHLOROTHIAZIDE 10-6.25 MG TABLET 1 TABLET ORALLY ONCE A DAY TAKING TRADJENTA 5 MG TABLET 1 TABLET ORALLY ONCE A DAY TAKING FENOFIBRATE 145 MG TABLET 1 TABLET ORALLY ONCE A DAY TAKING EZETIMIBE 10 MG TABLET 1 TABLET ORALLY ONCE A DAY TAKING SYNTHROID 175 MCG TABLET 1 TABLET ON AN EMPTY STOMACH IN THE MORNING ORALLY ONCE A DAY TAKING GLIMEPIRIDE 1 MG TABLET 1 TABLET WITH BREAKFAST OR THE FIRST MAIN MEAL OF THE DAY ORALLY ONCE A DAY TAKING GABAPENTIN 300 MG CAPSULE 1 CAPSULE ORALLY 900 MG BID, NOTES: LAST DOSE 0600 10/18/20 TAKING LORATADINE 10 MG TABLET 1 TABLET ORALLY ONCE A DAY TAKING FAMOTIDINE 20 MG TABLET 1 CAP ORALLY BID TAKING LANSOPRAZOLE 30 MG CAPSULE DELAYED RELEASE 1 CAPSULE ORALLY TWICE DAILY TAKING PROMETHAZINE HCL 12.5 MG TABLET 1 TABLET NEEDED ORALLY EVERY 6 HRS TAKING IPRATROPIUM-ALBUTEROL 0.5-2.5 (3) MG/3ML SOLUTION 3 ML NEEDED INHALATION EVERY 4-6 HRS TAKING ALBUTEROL SULFATE HFA 108 (90 BASE) MCG/ACT AEROSOL SOLUTION 1 PUFF NEEDED INHALATION EVERY 4 HRS NOT-TAKING LEVOCETIRIZINE DIHYDROCHLORIDE 5 MG TABLET 1 TABLET IN THE EVENING ORALLY ONCE A DAY NOT-TAKING DIAZEPAM 5 MG TABLET 1 TABLET NEEDED ORALLY IN WAY TO MRI UNIT AND AT MRI UNIT THE DAY OF MRI ( MDD2) NOT-TAKING CEFDINIR 300 MG CAPSULE 1 CAP ORALLY TWICE DAILY NOT-TAKING VITAMIN B12 1000 MCG TABLET EXTENDED RELEASE 1 TABLET ORALLY ONCE A DAY NOT-TAKING CLARITIN-D 24 HOUR 10-240 MG TABLET EXTENDED RELEASE 24 HOUR 1 TABLET NEEDED ORALLY ONCE A DAY NOT-TAKING ORPHENADRINE CITRATE 100 MG TABLET 1 TABLET AT BEDTIME ORALLY ONCE A DAY NOT-TAKING ZANTAC 150 MAXIMUM STRENGTH 150 MG TABLET 1 TABLET AT BEDTIME ORALLY ONCE A DAY NOT-TAKING AMOXICILLIN 500 MG TABLET 1 TABLET ORALLY EVERY 12 HRS NOT-TAKING MEDROL 4 MG TABLET THERAPY PACK DIRECTED ORALLY DAILY NOT-TAKING COLESTIPOL HCL 1 GM TABLET 2 TABLETS ORALLY ONCE A DAY NOT-TAKING FUROSEMIDE 1 TAB ORAL NOT-TAKING LISINOPRIL 10 MG TABLET 1 TABLET ORALLY ONCE A DAY NOT-TAKING CALCIUM 150 MG TABLET ORALLY NOT-TAKING ACETAMINOPHEN 500 MG CAPSULE 2 TABS ORALLY TWICE DAILY NOT-TAKING OMEPRAZOLE 40 MG CAPSULE DELAYED RELEASE 1 CAPSULE ORALLY BID NOT-TAKING VITAMIN D 72969 UNIT CAPSULE 1 CAPSULE ORALLY NOT-TAKING CELEBREX 100 MG CAPSULE 1 CAPSULE WITH FOOD ORALLY BID MEDICATION LIST REVIEWED AND RECONCILED WITH THE PATIENT PAST MEDICAL HISTORY HYPERTENSION DIABETES HIGH CHOLESTEROL ARTHRITIS-BILATERAL KNEES BACK PAIN BRONCHITIS, PNEUMONIA ALLERGIES AUGMENTIN: STOMACH CRAMPS - SIDE EFFECTS VICODIN: BURNING SENSATION ACROSS CHEST - ALLERGY LATEX GLOVES: LIPS TURNED BLUE AT DENTIST APPT - ALLERGY SURGICAL HISTORY NECK SURGERY- "SCRAPED DISCS" 05/29/12 BILATERAL BREAST REDUCTION 05/03/2008 HYSTERECTOMY 10/30/2007 PINICULECTOMY 08/11/2007 REMOVAL OF NAVEL 01/2008 REMOVAL OF FATTY TUMOR FRO LEFT HIP 05/2005 GALL BLADDER REMOVAL 08/2005 OVARY REMOVAL 03/2000 THROGLYOSCYAL CYST REMOVAL 1960 TONSILLECTOMY 1957 BILATERAL CATARACT REMOVAL WITH LENS IMPLANT 12/2014 THYROIDECTOMY 01/2017 FAMILY HISTORY FATHER: 82 YRS MOTHER: 81 YRS SIBLINGS: 42 YRS, DIAGNOSED WITH DIABETES 2DAUGHTER(S) - HEALTHY. FATHER-ALSMOTHER- ARTERIAL SCLEROSISSIBLING/ALIVE- DIABETES, COPD SIBLING/ALIVE- DIABETES/ BACK ISSUES1 DAUGHTER HAS PARACARDITIS. SOCIAL HISTORY GENERAL: TOBACCO USE ARE YOU A:NONSMOKER LATEX QUESTIONNAIRE LATEX ALLERGY : HAVE YOU EVER DEVELOPED ANY TYPE OF REACTION AFTER HANDLING LATEX PRODUCTS SUCH RUBBER GLOVES, CONDOMS, DIAPHRAGMS, BALLOONS, SOCKS, OR UNDERWEAR?YES - PLEASE INDICATE :RUBBER GLOVES LATEX ALLERGY : HAVE YOU EVER DEVELOPED ANY TYPE OF REACTION DURING OR AFTER DENTAL APPOINTMENT, VAGINAL/RECTAL EXAMINATION, SURGICAL PROCEDURE, OR ANY OTHER EXPOSURE?YES - PLEASE INDICATE :DENTAL PROCEDURE LATEX RISK : HAVE YOU EVER HAD ANY DIFFICULTY BREATHING OR HIVES AFTER EATING OR HANDLING ANY FRUITS, OR VEGETABLES; SUCH KIWI, BANANAS, STONE FRUITS, OR CHESTNUTSNO LATEX RISK : DO YOU HAVE A PREVIOUS PERSONAL HISTORY OF MORE THAN NINE SURGERIES, SPINA BIFIDA, OR REPEATED CATHERIZATIONS? YES - PLEASE INDICATE : > 9 SURGERIES LATEX RISK : ARE YOU FREQUENTLY EXPOSED TO LATEX PRODUCTS IN YOUR OCCUPATION?NO DATE ASKED : 10/17/2020 ALCOHOL USE: NO. ALCOHOL SCREENING DID YOU HAVE A DRINK CONTAINING ALCOHOL IN THE PAST YEAR?NO POINTS0 INTERPRETATIONNEGATIVE RECREATIONAL DRUG USE DRUG USE?NO PATIENT DENIES ABUSE OR MISSUSED OF ANY MEDICATION DENIES PATIENT DENIES USE OF ANY ILLEGAL SUBSTANCE INCLUDING MARIJUANA OR COCAINE DENIES CAFFEINE CAFFEINE USE?NO HIV / HEP-C SCREENING HIV TEST OFFERED TO PATIENT:YES DATE OFFERED:12/13/2016 TEST ACCEPTED:NO HEP-C TEST OFFERED TO PATIENT:NO REASON:PATIENT DECLINED AMISH AMISH NO MU-ISM BELIEFS THAT WOULD IMPACT HEALTH CARE. LANGUAGE LANGUAGES SPOKEN:POLISH EDUCATION LEVEL OF EDUCATION:HIGH SCHOOL BOCES- OFFICE MANAGEMENT LEARNING BARRIERS / SPECIAL NEEDS CHANGE FROM LAST VISIT?NO BARRIERS TO LEARNING?NO HEARING IMPAIRED?NO VISION IMPAIRED?YES :CORRECTIVE LENSES COGNITIVELY IMPAIRED?NO READINESS TO LEARN?YES LEARNING PREFERENCES?NO LEARNING CAPABILITIES PRESENT?YES EMOTIONAL BARRIERS?NO SPECIAL DEVICES?YES :WALKER MILLER HELPER NEEDED?NO DOMESTIC VIOLENCE STATUS: DO YOU FEEL SAFE IN YOUR ENVIRONMENT?YES OCCUPATION: UNEMPLOYED. DIET: REGULAR. EXERCISE: NO REGULAR EXERCISE- DUE TO PAIN. MARITAL STATUS: . OTHERS AT HOME: SPOUSE. - HAS THE PATIENT BEEN EDUCATED REGARDING HIS/HER PLAN OF CARE?YES HAS THE PATIENT BEEN EDUCATED REGARDING PAIN, THE RISK FOR PAIN, THE IMPORTANCE OF EFFECTIVE PAIN MANAGEMENT, AND THE PAIN ASSESSMENT PROCESS?YES HOUSING: OWNS MOBILE HOME. ADVANCE DIRECTIVE ADVANCE DIRECTIVE DISCUSSED WITH PATIENT:YES 10/12/2019 PT DOES NOT HAVE ANY ADVANCED DIRECTIVES. SHE STATES SHE ALREADY HAS INFORMATION ON HCP BUT HASN'T COMPLETED IT YET. ASSISTANCE WAS OFFERED INCOMPLETING FORM IF NEEDED. AD REVIEWED WITH PATIENT 09/09/2019 1207 NLJ. HOSPITALIZATION/MAJOR DIAGNOSTIC PROCEDURE SURGERIES COUGH 02/2019 HAD THROAT PROBLEMS, CLOSURE 12/2015 ABDOMINAL PAIN 1978 VITAL SIGNS WT 361.8 LBS, HT 65.5 IN, BMI 59.28 INDEX, BP 179/79 MM HG, HR 83 /MIN, RR 18 /MIN, TEMP 96.0 F, OXYGEN SAT % 96%, SAFE IN ENV? (Y/N) Y, NA INITIALS AW 0842, REVIEWED BY: MITCH. EXAMINATION GENERAL EXAMINATION: A HISTORY AND PHYSICAL EXAM ON THE PATIENT WAS DONE ON 10/12/2020 DATE OF ORIGINAL ASSESSMENT) IN PREPARATION OF SURGERY/PROCEDURE. I HAVE NOW REASSESSED THIS PATIENT'S HEALTH STATUS AND PERFORMED AN UPDATED EXAM TODAY. ALL CHANGES IN THE PATIENT'S HISTORY, PHYSICAL EXAM, PRE-EXISTING CONDITONS, AND INDICATIONS/CONTRAINDICATIONS TO THE PLANNED PROCEDURE AND ANESTHESIA ARE DOCUMENTED AND EVALUATED BELOW. I ATTEST TO THE ADEQUACY AND APPROPRIATENESS OF MY ASSESSMENT, AND CONFIRM THE NECESSITY FOR THE PLANNED PROCEDURE. THE PATIENT IS ALERT, ORIENTED TIMES THREE AND COOPERATIVE. LUNGS ARE CLEAR TO AUSCULTATION. HEART SHOWS REGULAR RHYTHM, NO MURMURS AND NO GALLOPS. ASSESSMENTS SPONDYLOSIS WITHOUT MYELOPATHY OR RADICULOPATHY, LUMBAR REGION - M47.816 (PRIMARY) SPONDYLOSIS WITHOUT MYELOPATHY OR RADICULOPATHY, LUMBOSACRAL REGION - M47.817 TREATMENT SPONDYLOSIS WITHOUT MYELOPATHY OR RADICULOPATHY, LUMBAR REGION COMPLETION OF PROCEDURAL VISIT WHEN MEETS CRITERIA MEDICATION: VALIUM TAB 5MG ORALLY (DIAZEPAM)JONATHON LYLES 10/18/2020 9:03:48 AM > VERIFIED FERN OROZCO 10/18/2020 9:07:00 AM > ADMINISTERED MEDICATION: OXYCODONE HCL TAB 5MG ORALLY JONATHON LYLES 10/18/2020 9:04:04 AM > VERIFIED FERN OROZCO 10/18/2020 9:07:29 AM > [facility]MIN[facility]ED [facility] 10/18/2020 9:19:35 AM > 20G IV ACCESS OBTAINED IN R HAND. PATIENT TOLERATED WELL SPONDYLOSIS WITHOUT MYELOPATHY OR RADICULOPATHY, LUMBOSACRAL REGION [facility] FLUORO GUIDE SPINE INJECTION (PAIN)[id number] OTHERS NOTES: PAT COMPLETED 10/17/20 M BRAYAN HIGGINBOTHAM. PROCEDURES PAIN NURSING RECORD PROCEDURE IN ROOM 0950, PHYSICIAN IN ROOM 1012, START 1014, FINISH 1031, PHYSICIAN OUT OF ROOM 1035, OUT OF ROOM 1039, ECG NORMAL SINUS, PATIENT SHIELDED YES, SAFETY STRAP YES, PREP CHLOROPREP, DRESSING TEGADERM LOC: 1. ALERT, ORIENTED, FERN OROZCO 10/18/2020 10:04:50 AM > RESP: 1. REGULAR, NO DYSPNEA, FERN OROZCO 10/18/2020 10:04:55 AM > COLOR: 1. PINKERNESTO TOM 10/18/2020 10:04:59 AM > SKIN: 1. WARM, DRY, FERN OROZCO 10/18/2020 10:29:41 AM > POSITION: 1. PRONEERNESTO TOM 10/18/2020 10:05:07 AM > VITALS: HR 75, 148/86, 90% R 16ERNESTO TOM 10/18/2020 10:05:59 AM > HR72, 156/93, 90% ERNESTO FrancoisFERN 10/18/2020 10:23:35 AM > HR 70, 160/92, 89%, R1ERNESTO Fabian,FERN 10/18/2020 10:31:26 AM > EXIT VITALS 1050- HR 85, 129/61,91%,R 16 TBRADLEYRN MAC OROZCO RN COMPLETION OF PROCEDURE APPOINTMENT: POST PAIN 5, DRESSING SITE DRY AND INTACT, IV DISCONTINUED, SITE CLEAR, N/A, CATHETER INTACT, GAIT OTHER WALKER, TEACHING COMPLETED, PATIENT ACKNOWLEDGES UNDERSTANDING YES, PROCEDURE APPOINTMENT COMPLETED AT 1056 PN LUMBAR FACET BLOCK THERAPEUTIC PRE PROCEDURE DIAGNOSIS LUMBAR SPONDYLOSIS, LUMBOSACRAL SPONDYLOSIS POST PROCEDURE DIAGNOSIS LUMBAR SPONDYLOSIS, LUMBOSACRAL SPONDYLOSIS PROCEDURE BILATERAL L3-L4 AND BILATERAL L5-S1 LUMBAR FACET THERAPEUTIC BLOCK SURGEON DR. YANI MARTINEZ RUSTIC FENCE BUILDER NONE ANESTHESIA LOCAL PRE PROCEDURE NOTE THE PATIENT HAS A HISTORY OF CHRONIC LOW BACK PAIN. I EVALUATED THE PATIENT AND REVIEWED THE CHART. I WENT OVER THE RISKS, ALTERNATIVES, AND BENEFITS ASSOCIATED WITH THIS PROCEDURE. THE PATIENT WOULD LIKE TO PROCEED AND GIVES CONSENT TO PERFORM THE PROCEDURE. THE PATIENT DENIES UNEXPLAINABLE WEIGHT LOSS, FEVER, CHILLS, OR NEW CHANGES IN URINARY OR BOWEL CONTROL. THE PATIENT IS COVID-19 NEGATIVE DESCRIPTION OF PROCEDURE THE PATIENT WAS BROUGHT TO THE PROCEDURE ROOM AND PLACED IN THE PRONE POSITION. THE LUMBOSACRAL AREA WAS CLEANED WITH CHLORAPREP SOLUTION AND DRAPED ASEPTICALLY. THE PROCEDURE WAS DONE UNDER STERILE CONDITIONS. A TIMEOUT WAS PERFORMED WHERE THE CONSENTED SITE WAS VERIFIED WITH EVERYONE IN THE ROOM. UNDER FLUOROSCOPIC GUIDANCE, THE TARGET POINT WAS SELECTED AT THE RIGHT AND LEFT L3-L4 AND RIGHT AND LEFT L5-S1 FACET JOINTS. TARGET POINT WAS SELECTED AFTER LATERAL ROTATION AND TILT OF THE MAGNIFIER OF THE C-ARM. I CONFIRMED AGAIN THE SITE OF TARGET. LIDOCAINE 0.5% WAS USED TO NUMB THE SKIN AND THE SUBCUTANEOUS TISSUE BELOW IT. SPINAL NEEDLES, 22-GAUGE, WERE ADVANCED UNDER FLUOROSCOPIC GUIDANCE AND FOLLOWING PATIENT FEEDBACK UNTIL THE TARGETS WERE TOUCHED. THE POSITION OF THE NEEDLES WAS VERIFIED WITH AP AND LATERAL VIEWS. AFTER PROPER POSITION OF THE NEEDLES WAS ACHIEVED, ISOVUE-M DYE 30%, 0.1 ML, WAS INJECTED SHOWING ADEQUATE SPREAD OF THE DYE. KENALOG 10 MG WAS INJECTED AT EACH SITE. THEN, A SOLUTION OF 1.0 ML OF BUPIVACAINE 0.125% OF WAS USED TO FLUSH EACH SITE. THE MEDICATION WAS VERIFIED WITH THE NURSE. THERE WAS NO EVIDENCE OF BLOOD, PARESTHESIA OR CEREBROSPINAL FLUID DURING THE PROCEDURE. THE PATIENT WAS SENT TO THE RECOVERY ROOM. THE PATIENT WAS MOVING THE EXTREMITIES AND DOING WELL. THERE WERE NO COMPLICATIONS DURING THE PROCEDURE. ESTIMATED BLOOD LOSS WAS LESS THAN 5 ML. FLUOROSCOPY TIME WAS 21 SECONDS POST PROCEDURE NOTE DEPENDING ON THE RESULTS, CONSIDER A LUMBAR EPIDURAL STEROID INJECTION L4-L5. THE PATIENT EXPRESSED THAT SHE HAS PAIN DOWN THE LEFT LEG. THE PATIENT WILL BE SEEN IN A FOLLOW UP IN THE NEXT FEW WEEKS. I AM LOOKING FOR LONG LASTING RELIEF FOR THE PATIENT WITH THIS INTERVENTION. INSTRUCTIONS WERE GIVEN, QUESTIONS WERE ANSWERED, AND THE PATIENT EXPRESSED UNDERSTANDING AND AGREES WITH THE PLAN. I, DONN FAN, DOCUMENTED THE ABOVE INFORMATION ACTING A SCRIBE FOR DR. MARTINEZ. I HAVE REVIEWED THE ABOVE DOCUMENT, WRITTEN BY DONN FAN, ENVIRONMENTAL COMPLIANCE ENGINEER, AND I VERIFY THAT IT IS ACCURATE PROCEDURE CODES 55631 INJ PARAVERT F JNT L/S 1 LEV, MODIFIERS: 50 [id number] INJ PARAVERT F JNT L/S 2 LEV, MODIFIERS: 50 DISPOSITION & COMMUNICATION FOLLOW UP FOLLOW UP WITH AGILE SCRUM MASTER (REASON: POST BILATERAL THERAPEUTIC LUMBAR FACET BLOCK L3-L4, L5-S1) ELECTRONICALLY SIGNED BY YANI MARTINEZ MD, MD ON 10/18/2020 AT 04:12 PM EST DISCLAIMER : THIS IS A VISIT SUMMARY EXTRACTED FROM THE [facility] CHART. IT IS NOT A COPY OF THE [facility] PROGRESS NOTE. MTDD
== END ==
LOC: M PAIN 08:30
PROVIDERS: ATTEND Anesthesiology
DX: M47.816 Spondylosis without myelopathy or radiculopathy, lumbar region (principal); M47.817 Spondylosis without myelopathy or radiculopathy, lumbosacral region; I10 Essential (primary) hypertension; E11.9 Type 2 diabetes mellitus without complications; E78.00 Pure hypercholesterolemia, unspecified; M17.0 Bilateral primary osteoarthritis of knee; Z79.899 Other long term (current) drug therapy; Z88.0 Allergy status to penicillin; Z88.5 Allergy status to narcotic agent; Z91.040 Latex allergy status
CPT/HCPCS: 64493; 64494; J3301; Q9967

== ENCOUNTER → 2020-11-07 | Outpatient (CLI) | payer MEDICARE ==
[~2020-11-07] MED LIST changes: -BUPIVACAINE HCL 0.25% 30ML VIAL As Ordered ONE; -ISOVUE-M 300 61% 15ML VIAL As Ordered ONE; -LIDOCAINE 1% SDV 30ML VIAL As Ordered ONE; -TRIAMCINOLONE ACETONIDE SUSP 40 MG/ML VIAL (J3301) As Ordered ONE; -diazePAM 5MG TABLET As Ordered ONE; -oxyCODONE 5MG TAB As Ordered ONE
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
== END ==
LOC: M PAIN 13:45
PROVIDERS: ATTEND Nurse Practitioner Family
DX: G89.29 Other chronic pain (principal); M46.1 Sacroiliitis, not elsewhere classified; I10 Essential (primary) hypertension; E11.9 Type 2 diabetes mellitus without complications; E78.00 Pure hypercholesterolemia, unspecified; M17.0 Bilateral primary osteoarthritis of knee; Z79.84 Long term (current) use of oral hypoglycemic drugs; Z79.899 Other long term (current) drug therapy; Z88.1 Allergy status to other antibiotic agents; Z88.5 Allergy status to narcotic agent; Z91.040 Latex allergy status

== ENCOUNTER → 2020-11-29 | Outpatient (CLI) | payer MEDICARE ==
--- NOTE | 2020-11-30 06:17 | REP ---
INDICATION: COUGH COMPARISON: 01/16/2018 TECHNIQUE: PA and lateral. FINDINGS: Mediastinum and cardiac silhouette are stable. Cardiomegaly cannot be excluded. Lung bedolla demonstrate diffuse chronic interstitial changes. Lateral view cannot exclude infrahilar infiltrate/atelectasis and correlation is required. No effusion. No pneumothorax. Skeletal structures intact. IMPRESSION: Lateral view cannot exclude infrahilar infiltrate/atelectasis. Correlation is recommended and chest CT should be considered for further investigation if necessary. <Electronically signed by Immanuel Nobles > 11/30/20 0661
== END ==
LOC: M WUC 10:46
PROVIDERS: ATTEND Physician Assistant
DX: R05 Cough (principal)

== ENCOUNTER → 2022-06-10 | Outpatient (REF) | payer MEDICARE ==
[~2022-06-10] MED LIST changes: -BISO10TA4 PO; +BISO1TAB19 PO; +OMEP40CA4 PO; -OMEP40CA97 PO
[2022-06-10 14:13] LABS: HEMATOCRIT 42.1 % (36.0-47.0); HEMOGLOBIN 12.3 g/dl (12.0-15.5); MEAN CORPUSCULAR HEMOGLOBIN 25.4 pg (27.0-33.0); MEAN CORPUSCULAR HGB CONC 29.2 g/dl (32.0-36.5); MEAN CORPUSCULAR VOLUME 86.8 fl (80.0-96.0); PLATELET COUNT, AUTOMATED 146 10^3/uL (150-450); RED BLOOD COUNT 4.85 10^6/uL (4.00-5.40); WHITE BLOOD COUNT 6.6 10^3/uL (4.0-10.0)
[2022-06-10 14:42] LABS: ALBUMIN 3.4 GM/DL (3.2-5.2); BILIRUBIN,TOTAL 0.4 MG/DL (0.2-1.0); CREATININE FOR GFR 1.08 MG/DL (0.55-1.30); FREE T4 1.45 NG/DL (0.76-1.46); GLOMERULAR FILTRATION RATE 53.7 (>45); MAGNESIUM LEVEL 2.3 MG/DL (1.8-2.4); POTASSIUM SERUM 4.6 MEQ/L (3.5-5.1); THYROID STIMULATING HORMONE 11.2 uIU/ML (0.358-3.740)
[2022-06-10 14:54] LABS: HEMOGLOBIN A1c 5.9 %
== END ==
LOC: M LAB REF 13:49
PROVIDERS: ATTEND Internal Medicine Cardiovascular Disease
DX: E11.9 Type 2 diabetes mellitus without complications (principal); E83.42 Hypomagnesemia; D64.9 Anemia, unspecified; E03.9 Hypothyroidism, unspecified

== ENCOUNTER → 2022-06-30 | Outpatient (CLI) | payer MEDICARE ==
[~2022-06-30] MED LIST changes: +BARIUM SULFATE 700 MG TABLET (E-Z-DISK) As Ordered ONE; +E-Z-PAQUE 96% w/w SUSP 176GM BTL As Ordered ONE; +VARIBAR NECTAR 40% w/v 240ML SUSP BTL As Ordered ONE; +VARIBAR PUDDING 40% w/v 230ML TUBE As Ordered ONE
[2022-06-30 14:01] LABS: HEMATOCRIT 44.6 % (36.0-47.0); HEMOGLOBIN 13.2 g/dl (12.0-15.5); MEAN CORPUSCULAR HEMOGLOBIN 24.9 pg (27.0-33.0); MEAN CORPUSCULAR HGB CONC 29.6 g/dl (32.0-36.5); MEAN CORPUSCULAR VOLUME 84.2 fl (80.0-96.0); PLATELET COUNT, AUTOMATED 212 10^3/uL (150-450); WHITE BLOOD COUNT 9.5 10^3/uL (4.0-10.0)
[2022-06-30 14:29] LABS: HEMOGLOBIN A1c 5.8 %
[2022-06-30 14:34] LABS: ALBUMIN 3.8 GM/DL (3.2-5.2); BILIRUBIN,TOTAL 0.5 MG/DL (0.2-1.0); CALCIUM LEVEL 10.2 MG/DL (8.8-10.2); CREATININE FOR GFR 1.15 MG/DL (0.55-1.30); MAGNESIUM LEVEL 2.4 MG/DL (1.8-2.4); POTASSIUM SERUM 4.9 MEQ/L (3.5-5.1); TOTAL PROTEIN 7.5 GM/DL (6.4-8.2)
== END ==
LOC: M RAD 12:38 → M LAB 12:38
PROVIDERS: ATTEND Nurse Practitioner Family
DX: R13.10 Dysphagia, unspecified (principal); Z79.899 Other long term (current) drug therapy

== ENCOUNTER 2023-06-15 10:50 | Day surgery (SDC) | payer MEDICARE ==
[~2023-06-15] VITALS: Ht 165.1 cm; Wt 157.9 kg
[~2023-06-15 10:50] MED LIST changes: +BACL10TA2 PO; -BARIUM SULFATE 700 MG TABLET (E-Z-DISK) As Ordered ONE; -E-Z-PAQUE 96% w/w SUSP 176GM BTL As Ordered ONE; +ERGO500029 PO; +EZET10TA58 PO; -K-TA10TA2 PO; +MUCI600T31 PO; +NS 1,000 ML IV ONE; +NYST-38 SS; -NYST50SS SS; -ORPH100T2 PO; +ORPH100T48 PO; +POTA-165 PO; -VARIBAR NECTAR 40% w/v 240ML SUSP BTL As Ordered ONE; -VARIBAR PUDDING 40% w/v 230ML TUBE As Ordered ONE; +VERI5TAB PO; -ZETI10TA16 PO
[2023-06-15] MEDS ORDERED: propofoL 200 MG/20 ML VIAL As Ordered ONE (12:42)
[2023-06-15] MEDS ORDERED: fentaNYL 100 MCG/2 ML INJECTION As Ordered ONE (12:42)
[2023-06-15] MEDS ORDERED: LIDOCAINE 2% 100MG/5ML SDV (FOR ANES.) As Ordered ONE (12:42)
[2023-06-15 13:22] VITALS: TEMP 97.6
[2023-06-15 13:50] VITALS: BP 136/63; O2SAT 96
== END 2023-06-15 14:00 | disposition home or self-care (01) ==
LOC: M OPP 10:50
PROVIDERS: ATTEND Internal Medicine Gastroenterology
DX: K31.7 Polyp of stomach and duodenum (principal); K25.9 Gastric ulcer, unspecified as acute or chronic, without hemorrhage or perforation; K22.89 Other specified disease of esophagus; Z79.1 Long term (current) use of non-steroidal anti-inflammatories (NSAID); Z79.51 Long term (current) use of inhaled steroids; Z79.84 Long term (current) use of oral hypoglycemic drugs; Z79.899 Other long term (current) drug therapy; Z88.1 Allergy status to other antibiotic agents; Z88.5 Allergy status to narcotic agent; Z88.6 Allergy status to analgesic agent; Z91.040 Latex allergy status; I50.9 Heart failure, unspecified; E11.9 Type 2 diabetes mellitus without complications; G47.30 Sleep apnea, unspecified
CPT/HCPCS: 43239; 43251; 88305; J3010

== ENCOUNTER 2023-12-15 06:55 | Day surgery (SDC) | payer MEDICARE ==
[~2023-12-15] VITALS: Ht 167.6 cm; Wt 149.7 kg
[~2023-12-15 06:55] MED LIST changes: -GLIM1TAB4 PO; +GLIM1TAB84 PO; -NS 1,000 ML IV ONE; +ONDA-83 PO; +POTA-298 PO; +TIRZ2.5P SQ
[2023-12-15] MEDS: NS 1,000 ML IV ONE (08:27)
[2023-12-15 11:34] VITALS: TEMP 99
[2023-12-15 11:53] VITALS: BP 130/63; O2SAT 97
[2023-12-15] MEDS ORDERED: propofoL 500 MG/50 ML VIAL As Ordered ONE (12:04)
== END 2023-12-15 11:59 | disposition home or self-care (01) ==
LOC: M OPP 06:55
PROVIDERS: ATTEND Internal Medicine Gastroenterology
DX: K25.9 Gastric ulcer, unspecified as acute or chronic, without hemorrhage or perforation (principal); K29.50 Unspecified chronic gastritis without bleeding; K21.9 Gastro-esophageal reflux disease without esophagitis; Z87.19 Personal history of other diseases of the digestive system; K76.0 Fatty (change of) liver, not elsewhere classified; K58.9 Irritable bowel syndrome, unspecified; Z90.49 Acquired absence of other specified parts of digestive tract; I11.0 Hypertensive heart disease with heart failure; I50.9 Heart failure, unspecified; E78.00 Pure hypercholesterolemia, unspecified; Z79.899 Other long term (current) drug therapy; Z88.0 Allergy status to penicillin; Z88.8 Allergy status to other drugs, medicaments and biological substances; Z88.5 Allergy status to narcotic agent; Z90.710 Acquired absence of both cervix and uterus

== ENCOUNTER 2024-10-11 12:03 | Day surgery (SDC) | payer MEDICARE ==
[~2024-10-11] VITALS: Ht 165.1 cm; Wt 140.3 kg
[~2024-10-11 12:03] MED LIST changes: +ACET650T61 PO; +BUDE0.5S6 INH; +FAMO1TAB11 PO; +GABA-1172 PO; -GABA-282 PO; +GLIM2TAB4 PO; +HYDR50TA70 PO; +LEVO200T4 PO; +SUCR1TAB56 PO
[2024-10-11] MEDS ORDERED: fentaNYL 100 MCG/2 ML INJECTION As Ordered ONE (12:48)
[2024-10-11] MEDS ORDERED: propofoL 200 MG/20 ML VIAL As Ordered ONE (12:49)
[2024-10-11] MEDS ORDERED: LIDOCAINE 2% 100MG/5ML SDV (FOR ANES.) As Ordered ONE (12:49)
[2024-10-11 14:30] VITALS: TEMP 97.4
[2024-10-11 14:50] VITALS: BP 132/67; O2SAT 94
== END 2024-10-11 15:09 | disposition home or self-care (01) ==
LOC: M OPP 12:03
PROVIDERS: ATTEND Internal Medicine Gastroenterology
DX: K25.7 Chronic gastric ulcer without hemorrhage or perforation (principal); K31.7 Polyp of stomach and duodenum; K29.50 Unspecified chronic gastritis without bleeding; G47.30 Sleep apnea, unspecified; Z88.1 Allergy status to other antibiotic agents; Z88.5 Allergy status to narcotic agent; Z88.8 Allergy status to other drugs, medicaments and biological substances; Z91.040 Latex allergy status; Z91.048 Other nonmedicinal substance allergy status; Z79.85 Long-term (current) use of injectable non-insulin antidiabetic drugs; Z79.84 Long term (current) use of oral hypoglycemic drugs
CPT/HCPCS: 43239; 88305; J3010

== ENCOUNTER 2025-03-27 11:26 | Day surgery (SDC) | payer MEDICARE ==
[~2025-03-27] VITALS: Ht 162.6 cm; Wt 137.6 kg
[~2025-03-27 11:26] MED LIST changes: +FENO200C24 PO; +GLIM2TAB29 PO
[2025-03-27] MEDS ORDERED: LIDOCAINE 2% 100 MG/5 ML SDV (FOR ANES.) As Ordered ONE (12:33)
[2025-03-27 13:07] VITALS: TEMP 97
[2025-03-27 13:25] VITALS: BP 151/70; O2SAT 97
[2025-03-27] MEDS: IPRATROPIUM 0.5 MG/ALBUTEROL 2.5 MG INH SOL UD 3 ML NEB STA (13:29)
== END 2025-03-27 13:41 | disposition home or self-care (01) ==
LOC: M OPP 11:26
PROVIDERS: ATTEND Internal Medicine Gastroenterology
DX: K31.89 Other diseases of stomach and duodenum (principal); K31.7 Polyp of stomach and duodenum; K27.9 Peptic ulcer, site unspecified, unspecified as acute or chronic, without hemorrhage or perforation; G47.30 Sleep apnea, unspecified; Z88.1 Allergy status to other antibiotic agents; Z88.8 Allergy status to other drugs, medicaments and biological substances; Z88.5 Allergy status to narcotic agent; Z91.040 Latex allergy status; Z91.048 Other nonmedicinal substance allergy status; Z79.899 Other long term (current) drug therapy